=== PATIENT | female | born 1970 | race Caucasian/White ===

== ENCOUNTER 2019-07-13 14:38 | Outpatient (CLI) | payer OTHER, SELFPAY ==
--- NOTE | 2019-07-13 14:42 | XR_ITS ---
WS: [id number] LATERAL LUMBAR SPINE: 3 view. Lateral radiographs are performed in upright neutral, flexion and extension to the patient's toleranc e. HISTORY: Low back pain COMPARISON: None available. Normal lumbar alignment. No fracture. No instability with flexion or extension. Scattered calcificati on in the distal aorta. XR/XR lumbar spine f/e only [id number] IMPRESSION: No lumbar spine instability.
== END 2019-07-13 14:39 | disposition home or self-care (01) ==
LOC: RADWPI 14:41
PROVIDERS: Family Provider Nurse Practitioner Family; PCP Family Medicine; Referring Provider Family Medicine; Visit Provider Licensed Practical Nurse
DX: M54.5 Low back pain (principal)
CPT/HCPCS: 72120

== ENCOUNTER 2019-07-29 12:29 | Outpatient (CLI) | payer OTHER, SELFPAY ==
[2019-07-29] MEDS: iohexol 300 mg/mL 100 mL Btl IV (13:04)
--- NOTE | 2019-07-29 15:30 | CT_ITS ---
WS: [id number] CT CERVICAL SPINE with contrast. HISTORY: Cervical stenosis TECHNIQUE: Contiguous 2.5 mm axial imaging performed through the entire cervical spine with contrast. Sagittal and coronal reformats also performed. All CT scans at [facility] use at least o ne of these dose optimization techniques: automated exposure control; mA and/or kV adjustment per pat ient size (includes targeted exams where dose is matched to clinical indication); or iterative recons truction. DLP: 1681.95 mGycm Omnipaque 300, 95 mL IV. COMPARISON: 05/14/2019 Straightening of the normal cervical lordosis. Small osteophytes extend posteriorly from C4, C5 and C6. C5 retrolisthesis by 2 mm. No fractures. Treating Machine Operator niocervical junction is intact. No enhancing masses or vascular malformations are identified. C2-C3: Normal. C3-C4: Shallow central disc protrusion. C4-C5: Mild osteophytic ridging. Mild RIGHT foraminal narrowing. C5-C6: Mild osteophytic ridging and central disc protrusion. Moderate narrowing of the central canal and bilateral foraminal stenosis. C6-C7: Small central disc protrusion and osteophytic ridging. Mild central and bilateral foraminal st enosis. C7-T1: Normal. Paraseptal emphysema at the lung apices. CT/CT cervical spine w con [id number] IMPRESSION: 1. Straightening of the normal cervical lordosis. 2. Moderate degenerative disc disease at C5-6. 3. Moderate central and bilateral foraminal stenosis at C5-6. 4. Mild central and bilateral foraminal stenosis at C6-7. 5. C5 retrolisthesis by 2 mm. 6. No enhancing masses.
--- NOTE | 2019-07-29 16:00 | XR_ITS ---
WS: [id number] LATERAL CERVICAL SPINE: 3 view. Lateral radiographs are performed in upright neutral, flexion and extension to the patient's toleranc e. HISTORY: Neck pain COMPARISON: None available. Mild straightening and slight reversal of the normal cervical lordosis. C5 retrolisthesis by 2 mm. No significant change with flexion or extension. Vertebral body heights and disc space heights remain n ormal. XR/XR cervical spine fl/ex [id number] IMPRESSION: 1. No significant cervical instability. 2. C5 retrolisthesis by 2 mm.
== END 2019-07-29 12:30 | disposition home or self-care (01) ==
LOC: RADWPI 12:33
PROVIDERS: Family Provider Nurse Practitioner Family; PCP Family Medicine; Visit Provider Licensed Practical Nurse
DX: M48.02 Spinal stenosis, cervical region (principal); M50.322 Other cervical disc degeneration at C5-C6 level
CPT/HCPCS: 72040; 72126; Q9967

== ENCOUNTER 2019-10-26 14:04 | Observation (INO) | payer OTHER, SELFPAY ==
[2019-10-23 11:52] VITALS: BMI 23.7
[2019-10-26] VITALS (12 sets, daily range): BP systolic 116–165; BP diastolic 78–94; PULSE 69–104; RESP 17–26; TEMP 36.2–36.6; O2SAT 94–99
--- NOTE | 2019-10-26 10:21 | P.HPUD_ITS ---
Surgery/Procedure H&P Update DATE OF PROCEDURE: October 26, 2019 DATE H&P PERFORMED: 10/19/19 H&P UPDATE INFORMATION: I have reviewed H&P completed within last 30 days and H&P is in [facility] [place] on date indicated PREOP DIAGNOSIS: Intervertebral disc disorder with myelopathy, mid cervical region PRIMARY INDICATION FOR PROCEDURE: Pain PLANNED PROCEDURE: Operation Date: 10/26/19 10:50 Proposed Procedures Anterior Cervical Discectomy/Fusion/fixation C5-C6 C6-C7 44739 M50.020(Not Applicable) - Arslan Morales MD
--- NOTE | 2019-10-26 10:23 | PM.OP2 ---
 Brief Operative Note: Date of procedure: 10/26/19 Pre-op diagnosis: Intervertebral disc disorder with myelopathy Post-op diagnosis: same (with instabiity of joint) Procedure Done: C5-C7 ACDFF Surgeon: Arslan Morales Estimated blood loss (mL): 25 Complications: None Post-op Plan: PACU, then bentley Condition: stable Disposition: PACU Coding Level of Care Code Acute Substance Abuse Technician for Gretel Borrero
[2019-10-26] MEDS: sodium chloride 0.9% 1,000 ML 30 ML IV (10:30)
--- NOTE | 2019-10-26 10:34 | ANES.PREANE2 ---
Pre-Anesthetic Assessment Pre-Anesthetic Assessment: Height/Weight: Height 1.6 m Weight 60.781 kg Temp Pulse Resp BP Pulse Ox 97.6 F 69 18 116/78 99 10/26/19 10:01 10/26/19 10:01 10/26/19 10:01 10/26/19 10:01 10/26/19 10:01 Preop Diagnosis: Intervertebral disc disorder with myelopathy, mid cervical region Proposed Procedure: Operation Date: 10/26/19 10:50 Proposed Procedures p Anterior Cervical Discecotmy&Fusion 2Lev C5-C6 C6-C7 91360 M50.020(Not Applicable) - Arslan Morales MD Familial anesthetic complications: Violent/startled upon awakening from anesthesia Baclofen TID prn -takes everyday but not three times a day. Was Beta Leonie taken within 24 hours: N/A Last intake: Intake Last Liquid Date 10/25/19 Last Liquid Time 21:00 Last Solid Date 10/25/19 Last Solid Time 21:00 Social: Social History: Tobacco Packs per day: 1 ppd Exam: Pre-Anes Outpt Exam: alert, oriented x 3, clear to auscultation bilaterally and regular rate & rhythm Airway: Cervical ROM: Other (limited due to pain) MP: 2 Dentition: Full Additional comments: upper dentures Pulmonary: Pulmonary: None reported CV/HEM: CV/HEM: None reported : : None reported Hepatic: Hepatic: None reported GI: GI: None reported Metabolic: Metabolic: None reported Musc/skel: Musc/skel: Fibromyalgia Neuropsych: Neuropsych: Neuropathy and None reported Anesthetic Plan: ASA status: 2 Anesthesia: General Risk of > 500 ml blood loss (7ml/kg in children): No Meds/Allergies Current Medications: Current Medications Generic Name Dose Route Start Last Admin Trade Name Freq PRN Reason Stop Dose Admin Sodium Chloride 1,000 mls @ 30 ml s/hr 10/26/19 10:15 10/26/19 10:30 Sodium Chloride 0.9% IV 10/27/19 10:14 30 mls/hr .Q24H ROMULO Administration PFSH Anesthesia PFSH: Medical History (Updated 10/23/19 @ 13:47 by Kimberlee Pena) Back pain of lumbosacral region with sciatica Cervical disc disorder with myelopathy of mid-cervical region Intervertebral disc disorder with radiculopathy of lumbosacral region Lumbar stenosis with neurogenic claudication Stenosis of cervical spine with myelopathy Syrinx of spinal cord Thoracic degenerative disc disease Social History Smoking and tobacco status: current some day smoker Alcohol intake: never Lives independently: Yes Household members: children Housing: House Marital status: service: No Current occupational status: retired History of recent travel: No Data Anesthesia Cardiac Studies: No Data to Display
--- NOTE | 2019-10-26 11:01 | XR_ITS ---
WS: [id number] INTRAOPERATIVE LATERAL CERVICAL SPINE HISTORY: OR PICS COMPARISON: 07/29/2019 Lateral radiograph obtained in the OR with a metallic marker indicating the anterior C6 vertebral bod y. Patient is intubated. XR/XR cervical spine 1ort [id number] IMPRESSION: Intraoperative planning marker at anterior C6 level.
[2019-10-26] MEDS: thrombin 5,000 unit SDV 5000 UNIT XX (11:23)
--- NOTE | 2019-10-26 11:38 | XR_ITS ---
WS: [id number] INTRAOPERATIVE LATERAL CERVICAL SPINE HISTORY: SURGERY COMPARISON: 10/26/2019 Lateral radiograph obtained in the OR with a metallic marker indicating the anterior disc space of C5 -6. Soft tissue spacers are now present. Patient is intubated. XR/XR cervical spine 1ort [id number] IMPRESSION: Intraoperative planning marker at anterior C5-6 disc space.
--- NOTE | 2019-10-26 13:40 | XR_ITS ---
WS: [id number] CERVICAL SPINE 2 VIEWS HISTORY: AP/LAT Post op Fusion COMPARISON: Study earlier the same day. Status post cervical fusion. Anterior cervical plate and screws placed from C5 through C7. Poorly vis ualized due to rotation of the patient and body habitus. Interbody spacers are poorly visualized. Patient has been extubated. XR/XR cervical spine 3V* [id number] IMPRESSION: Poorly visualized anterior cervical fusion from C5 through C7. No abnormality a t detected.
--- NOTE | 2019-10-26 14:00 | SUR.PHASEI ---
1349 PATIENT TO PACU AT THIS TIME FROM OR. RR EVEN AND UNLABORED. ORAL AIRWAY IN PLACE. SPO2 98% ON SIMPLE MASK AT 8L. DRESSING TO ANTERIOR NECK, CDI WITH COLLAR IN PLACE.
--- NOTE | 2019-10-26 14:01 | SUR.PHASEI ---
1356 ORAL AIRWAY REMOVED AT THIS TIME. SPO2 95% ON RA.
--- NOTE | 2019-10-26 14:22 | SUR.PHASEI ---
1412 PATIENT TO MED SURG AT THIS TIME. RR EVEN AND UNLABORED. PAIN 3/10. DRESSING TO ANTERIOR NECK, CDI WITH COLLAR IN PLACE. PATIENT AMBULATORY FROM GURNEY TO BATHROOM, WITH STEADY. THIS NURSE REMAINED WITH PATIENT UNTIL 1420.
[2019-10-26] MEDS: HYDROcodone-acetaminophen 5-325 mg Tablet PO (14:58)
[2019-10-26] MEDS: baclofen 10 mg Tablet PO (14:58)
[2019-10-26] MEDS: gabapentin 300 mg Capsule PO (14:59)
[2019-10-26] MEDS: lactated ringers 1,000 ML 90 ML IV (14:59)
--- NOTE | 2019-10-26 17:30 | P.OP_ITS ---
Operative Report Date of procedure: October 26, 2019 Pre-op Diagnosis: Intervertebral disc disorder with myelopathy, mid cervical region Post-op diagnosis: same (With instability of joint) Procedure Done: 1. C5-C6, C6-C7 anterior cervical discectomy/osteophytectomy. 2. C5-C6, C6-C7 placement of intervertebral prosthetic devices. 3. C5-C6, C6-C7 anterior cervical plate/screw fixation. 4. C5-C6, C6-C7 anterior cervical fusion utilizing augmented, morselized autograft. Implants: ACIS ProTi Spacers. DePuy Synthes Vectra plate/screws. [employer] Moldable Demineralized Fibers. Specimens removed/disposition: C5-C6, C6-C7 disc Pathology: Cervical disc fragments Surgeon: Arslan Morales Anesthesia: General Estimated blood loss (mL): 25 IV fluids (mL): 1,200 Urine output (mL): 200 Complications: None Condition: stable Disposition: PACU Brief History: The patient is a 49-year-old female with symptomatic, radiographically confirmed cervical disc/joint disease and associated neural impingement. Imaging studies demonstrated dominant abnormalities at C5-C6 and C6-C7. Conservative management did not provide adequate lasting symptom relief. After review of the diagnostic and treatment options with the risks/potential benefits/rationale for each, the patient requested to proceed with surgical intervention. Procedure: After routine preoperative evaluation and informed consent were obtained, the patient was taken to the Operating Room and placed under general endotracheal anesthesia. She was positioned supine and fit in the [facility] tongs for the application of in-line cervical traction. The anterolateral neck on the left was prepared with hair clippers. A proposed transverse skin incision was marked with a sterile skin marker, utilizing intraoperative radiography and regional anatomy for localization. The area was scrubbed with Betadine, prepped with DuraPrep, and draped with sterile towels and drapes. [place] surgical barrier was applied. The proposed incision site was infiltrated with 1% Xylocaine with Epinephrine. A skin incision was made and carried down into the subcutaneous tissues. The platysma was identified and divided in the direction of its fibers. A plane was dissected just medial to the carotid sheath and lateral to the midline esophagus and trachea. Prevertebral soft tissues were bluntly dissected free of the anterior margin of the cervical spine. Longus coli muscles were freed from their medial attachments. Deep self-retaining retractors were placed. Intraoperative radiography verified the desired surgical levels. The C5-C6 and C6-C7 interspaces were sequentially incised with a #11 blade. Discectomies were accomplished utilizing various curettes and pituitary rongeurs. Anterior marginal osteophytes were resected with the Lempert and Kerrison rongeurs. Cartilaginous end plates were stripped free with curettes. Posterior marginal osteophytes were resected with thin foot plate Kerrison rongeurs. The medial aspects of the neural foramina were enlarged in a similar manner. Posterior longitudinal ligament was divided and resected as necessary to further the decompression. Overall, encroachment and osteophyte prominence were greater at C5-C6 than C6-C7. Once the decompressions were felt to be adequate at both levels, the disc spaces were sized. A 7 mm ACIS ProTi Lordotic/Medium Spacer was chosen for C5-C6. An 8 mm ACIS ProTi Lordotic/Medium Spacer was chosen for C6-C7. The Spacers were packed with morselized autograft obtained from the osteophytectomy portions of the procedure, augmented with [employer] Moldable Demineralized Fibers. The Spacers were sequentially placed within the C5-C6 and C6-C7 interspaces while in-line cervical traction was applied via the Pena-Wells tongs. Once the Spacers were felt to be in good position, a Synthes Vectra plate of the desired size was chosen. The plate was bent to match the curvature of the patient's cervical spine utilizing the plate avelar. The plate was secured to the C5, C6 and C7 vertebral bodies with bilateral 4 mm x 14 mm self-drilling screws. Final screw tightening was performed, and the locking mechanisms within the plate were noted to engage the screws at each site. The construct was inspected and felt to be in good position and secure. The wound was copiously irrigated with sterile saline and antibiotic irrigation. Hemostasis was ensured with the bipolar electrocautery. Wound closure was performed in multiple layers with 2-0 Vicryl Plus simple interrupted closure of the platysma and deep dermis as separate layers. Final skin closure was performed with 4-0 Vicryl Plus in a running subcuticular pattern. Steri- Strips were applied, and a sterile dressing was placed. The patient was released from the Pena-Wells tongs and fit in a [place] collar. She was transferred onto the Recovery Room cart in the supine position. She was extubated without incident. The patient tolerated the procedure well. All sponge, needle, and instrument counts were correct at the completion of the procedure.
--- NOTE | 2019-10-26 18:17 | PM.DCS ---
Discharge Providers Date of Admission: 10/26/19 14:04 Date of Discharge: October 26, 2019 Attending Provider at Admission: Arslan Wilson MD Attending Provider at Discharge: Arslan Wilson MD Primary Care Provider: Akiko Valdez MD Diagnoses at Discharge Discharge Diagnosis (1) Cervical disc disorder with myelopathy of mid-cervical region: Status: Chronic (2) Instability of joint: Status: Acute Reason for Visit Reason for Visit: Reason For Visit: Cervical disc disorder with myelopathy of mid cerv Brief History: The patient is a 49-year-old female with symptomatic, radiographically confirmed cervical disc/joint disease and associated neural impingement. Imaging studies demonstrated dominant abnormalities at C5-C6 and C6-C7. Conservative management did not provide adequate lasting symptom relief. After review of the diagnostic and treatment options with the risks/potential benefits/rationale for each, the patient requested to proceed with surgical intervention. Hospital Course Hospital Course: The patient underwent C5-C6, C6-C7 ACDFF on 10/26/2019. She tolerated the procedure well. She completed preoperative and postoperative intravenous antibiotic doses, and the physical therapy postoperative spine protocol. She was ambulatory, voiding, and tolerating regular diet prior to discharge home on the evening of the date of surgery. Physical Exam Const: COMMON NORMALS: no apparent distress GENERAL APPEARANCE: cooperative and comfortable Neck/C-Spine: COMMON NORMALS: supple GENERAL: Yes trachea midline and No anterior neck swelling CERVICAL SPINE: Yes collar present Resp: COMMON NORMALS: normal respiratory effort EFFORT & INSPECTION: No tachypneic Extremity: COMMON NORMALS: no clubbing, cyanosis or edema Neuro: COMMON NORMALS: moves all extremities MOTOR EXAM: strength 5/5 throughout (Bilateral upper extremities) Psych: COMMON NORMALS: mental status grossly normal and speech normal ATTITUDE: Yes calm and Yes engaged ACTIVITY/MOTOR BEHAVIOR: Yes appropriate eye contact SPEECH: Yes normal speech ATTENTION/CONCENTRATION: Yes attention grossly intact Skin: WOUNDS: Yes surgical site (Left anterolateral neck surgical site dressing clean/dry/intact.) Urinary Catheter Management^: F: Cath Placed During This Visit: yes, but has since been removed by the nurse Urinary Catheter Date of Insertion: 10/26/19 Urinary Catheter Time of Insertion: 11:15 Date Urinary Catheter Removed: 10/26/19 Time Urinary Catheter Discontinued: 13:30 Discharge Data Data Completed and Pending: Completed Studies During Hospitalization Category Date Time Status XR cervical spine 1 view portable [ XR cervical spine Exams 10/26/19 11:38 Completed 1Vport 17197] Rou bishnu XR cervical spine 1Vport 11912 Rout ine Exams 10/26/19 11:01 Completed XR cervical spine 3V* [id number] Routine Exams 10/26/19 13:40 Completed Pathology: Surgic al [PTH] Routine Pth 10/26/19 13:52 Completed Imaging^: Other Xray: Radiologist's impression: IMPRESSION: Poorly visualized anterior cervical fusion from C5 through C7. No abnormality at detected. Procedures Performed: C5-C6, C6-C7 anterior cervical discectomy/fusion/fixation. Intravenous antibiotics. Physical therapy. Vitals: Last Vital Signs Temp 97.5 F L 10/26/19 18:29 Pulse 87 10/26/19 18:29 Resp 18 10/26/19 18:29 BP 165/90 10/26/19 18:29 Pulse Ox 96 10/26/19 18:29 Discharge Plan Discharge Patient Disposition: Home, Self-Care Condition: Stable Prescriptions: [place] 7.5-325 mg tablet 1 tab PO Q4H PRN (Reason: pain) Qty: 30 RF: 0 Continued multivit,wcqutdt-tjz-mfpob acd 200 mcg tablet 1 mcg PO ONCE RF: 0 baclofen 10 mg tablet 10 mg PO TID Qty: 90 RF: 2 gabapentin 300 mg capsule 300 mg PO TID Qty: 90 RF: 3 Chantix Starting Month Box 0.5 mg (11)- 1 mg (42) tablets,dose pack See Rx Instructions PO PER PKG DIR Qty: 53 RF: 0 Discontinued tramadol 50 mg tablet 100 mg PO TID PRN (Reason: pain) Qty: 180 RF: 0 Discharge Orders: Discharge Order (Routine); Ordered 10/26/19 Ordered By: Arslan Wilson Referrals: Arslan Wilson MD [Physician] - 2 weeks (DR WILSON OFFICE WILL OSCAR WITH APPOINTMENT.) Discharge Diet: Advance as tolerated Discharge Activity: Limit activity as instructed and As per PT/OT instructions Patient Instructions: Hydrocodone/Acetaminophen (By mouth), Anterior Cervical Discectomy (DC) Activity Restrictions/Additional Instructions: Activity -Cervical fusion: Wear cervical collar 24 hours a day. Change as necessary for showering, shaving, or if it becomes soiled. -No lifting or reaching overhead. - No driving until office followup visit - No lifting/pushing/pulling over 10 pounds - Avoid twisting or bending - Walking is encouraged - Home exercise per physical therapist - You may engage in sexual intercourse at any time as long as it is comfortable for you - Check with your doctor before returning to work. Notify your doctor if you develop: - temperature of 101.5 degrees F. or higher - redness or swelling of the incision - Foul drainage - increasing pain - increasing numbness or tingling in the arms or legs - New or increasing problems with vision, balance, memory, speaking, nausea or vomiting Hygiene: - Showering is okay - No tub baths or soaking Other: Remove outer bandage 3 days after surgery. If you have paper strips, leave in place until they fall off on their own. If you have stitches, keep your incision dry until the stitches are removed. Your doctor's office is available to answer any questions from 7 AM to 5:00 PM, Saturday through at [phone]. After hours, go to the emergency room at [facility] or call 911 for assistance. Discharge Date/Time: 10/26/19 17:40 Discharge Attestations Time Spent in Discharge Care*: other (postop global) Quality Metrics Clinical Quality Measures During this hospital stay, did patient experience: None Coding Level of Care Code Acute Peach Grower for Gretel Fwd Exam Detailed Diagnoses Cervical disc disorder with myelopathy of mid-cervical region M50.020 Instability of joint M25.30 Comment postop global
--- NOTE | 2019-10-26 18:17 | PC.NURSE ---
Discharge note Patient was educated on discharge orders. All medications with adverse effects were educated with patient verbalizing understanding. IV was removed with catheter in tact. Patient tolerated well. Patient taken off unit for discharge by wheelchair.
== END 2019-10-26 17:40 | disposition home or self-care (01) ==
LOC: MEDSURG 14:05
PROVIDERS: Admitting Provider Specialist; PCP Family Medicine; Visit Provider Specialist
PROC: 0RB30ZZ Excision of Cervical Vertebral Disc, Open Approach (ICD-10-PCS; CPT 22551; principal; 2019-10-26 10:45)
DX: M50.022 Cervical disc disorder at C5-C6 level with myelopathy (principal); M53.2X2 Spinal instabilities, cervical region; F17.210 Nicotine dependence, cigarettes, uncomplicated
CPT/HCPCS: 22551; 22552; 22853 ×2; 12345; 51702; 72020; 72040; 88304; 96361; 96365; 97110; 97161; C1713; G0378; J0690; J1100; J2001; J2250; J2370; J2405; J2704; J3010; J3490; J7030; L0172; L0174

== ENCOUNTER 2019-11-09 12:16 | Outpatient (CLI) | payer OTHER, SELFPAY ==
--- NOTE | 2019-11-09 12:58 | XR_ITS ---
WS: [id number] CERVICAL SPINE TECHNIQUE: 3 views of the cervical spine CLINICAL INFORMATION: s/p cervical spinal fusion COMPARISON: October 26, 2019 FINDINGS: Straightening of the normal cervical lordosis. Anterior interbody cervical fusion C5-C7. Fusion hardw are appears in good position. Normal C1-C2 articulation. Moderate facet arthropathy. XR/XR cervical spine 3V* [id number] IMPRESSION: Straightening of the normal cervical lordosis with anterior cervical fusion C5- C7. Hardware appears in good position.
== END 2019-11-09 12:17 | disposition home or self-care (01) ==
LOC: RADWPI 12:19
PROVIDERS: PCP Family Medicine; Visit Provider Licensed Practical Nurse
DX: Z98.1 Arthrodesis status (principal); M43.22 Fusion of spine, cervical region; M47.812 Spondylosis without myelopathy or radiculopathy, cervical region
CPT/HCPCS: 72040

== ENCOUNTER 2020-01-06 13:04 | Outpatient (CLI) | payer OTHER, SELFPAY ==
--- NOTE | 2020-01-06 13:15 | CT_ITS ---
WS: [id number] CT CERVICAL SPINE TECHNIQUE: Noncontrast CT of the cervical spine with coronal and sagittal reformatted images. CLINICAL INFORMATION: s/p cervical spinal fusion COMPARISON: CT July 29, 2019 DLP: 1291.[address] scans at [facility] use at least one of these dose optimization techniques: automat ed exposure control; mA and/or kV adjustment per patient size (includes targeted exams where dose is matched to clinical indication); or iterative reconstruction. FINDINGS: Straightening of the normal cervical lordosis. Interval new postoperative changes anterior interbody cervical fusion C5-C7. Hardware appears in good position. No evidence of hardware loosening. Immature interbody fusion grafts. Trace anterolisthesis C4 on C5. No high-grade central canal stenosis. C2-C3: Normal. C3-C4: Shallow central disc protrusion. Spinal canal is patent. Mild facet arthropathy. Foramen are p atent. C4-C5: Disc osteophytic ridging. Moderate right foraminal narrowing. Mild facet arthropathy. C5-C6:Postoperative changes. Mild bilateral bony foraminal narrowing left greater than right. Spinal canal is patent. Moderate facet arthropathy. C6-C7: Postoperative changes are new. Mild left and no significant right foraminal narrowing. Spinal canal is patent. Mild facet arthropathy. C7-T1: Normal. Paraseptal emphysema at the lung apices. CT/CT cervical spin wo con* [id number] IMPRESSION: 1. Straightening of the normal cervical lordosis with interval new postoperati ve changes. Anterior interbody cervical fusion C5-C7. 2. Hardware appears in good position. No hardware loosening. Immature interbod y fusion grafts. 3. No high-grade central canal stenosis. 4. No other significant interval changes..
== END 2020-01-06 13:05 | disposition home or self-care (01) ==
LOC: RADWPI 13:06
PROVIDERS: Family Provider Family Medicine; PCP Family Medicine; Visit Provider Licensed Practical Nurse
DX: Z98.1 Arthrodesis status (principal); M43.22 Fusion of spine, cervical region
CPT/HCPCS: 72125

== ENCOUNTER → 2020-09-20 16:37 | Outpatient (BNVA) | payer OTHER, SELFPAY | PROVIDERS: Family Provider Family Medicine; PCP Family Medicine; Visit Provider Family Medicine | DX: Z01.419 Encounter for gynecological examination (general) (routine) without abnormal findings (principal); Z78.9 Other specified health status; F41.9 Anxiety disorder, unspecified | CPT/HCPCS: 88175 ==

== ENCOUNTER 2020-10-24 14:48 | Outpatient (CLI) | payer OTHER, SELFPAY ==
--- NOTE | 2020-10-24 15:00 | MM_ITS ---
WS: [id number] SCREENING DIGITAL MAMMOGRAM WITH CAD HISTORY: screening mammogram COMPARISON: None available. Bilateral CC and MLO views submitted. Computer aided detection analyzed. Breast composition: There are scattered areas of fibroglandular density. No suspicious masses, microc alcifications or architectural distortion. MM/[place] [id number] IMPRESSION: BI-RADS: 1-Negative FOLLOW UP: 1 Year Follow-up
== END 2020-10-24 14:49 | disposition home or self-care (01) ==
LOC: RADSHAW 14:50
PROVIDERS: PCP Family Medicine; Visit Provider Family Medicine
DX: Z12.31 Encounter for screening mammogram for malignant neoplasm of breast (principal)
CPT/HCPCS: 77067

== ENCOUNTER → 2020-10-26 15:07 | Outpatient (BNVA) | payer OTHER, SELFPAY | PROVIDERS: PCP Family Medicine; Visit Provider Obstetrics & Gynecology | DX: R87.622 Low grade squamous intraepithelial lesion on cytologic smear of vagina (LGSIL) (principal) | CPT/HCPCS: 88305 ==

== ENCOUNTER → 2021-02-13 14:01 | Outpatient (BNVA) | payer OTHER, SELFPAY | PROVIDERS: PCP Family Medicine; Visit Provider Obstetrics & Gynecology | DX: Z12.72 Encounter for screening for malignant neoplasm of vagina (principal) | CPT/HCPCS: 88175 ==

== ENCOUNTER → 2021-06-09 15:02 | Outpatient (BNVA) | payer OTHER, SELFPAY | PROVIDERS: PCP Family Medicine; Visit Provider Obstetrics & Gynecology | DX: N89.0 Mild vaginal dysplasia (principal); Z85.42 Personal history of malignant neoplasm of other parts of uterus; R87.622 Low grade squamous intraepithelial lesion on cytologic smear of vagina (LGSIL) | CPT/HCPCS: 87624 ==

== ENCOUNTER → 2022-04-17 15:58 | Outpatient (BNVA) | payer OTHER, SELFPAY | PROVIDERS: PCP Family Medicine; Visit Provider Nurse Practitioner Family | DX: G89.11 Acute pain due to trauma (principal) | CPT/HCPCS: 72100; 72220 ==

== ENCOUNTER 2022-10-01 14:38 | Outpatient (CLI) | payer OTHER, SELFPAY ==
--- NOTE | 2022-10-01 | XR_ITS ---
WS: [id number] XR lumbar spine f/e only 28878 REASON FOR EXAM: BACK PAIN FINDINGS: Normal lordosis. No significant vertebral body abnormality. Mild anterior vertebral body osteophytosis L3-L5. Intervertebral disc spaces are relatively well-preserved. Mild narrowing of the L5-S1 disc. No significant neutral listhesis. No significant vertebral body movement with flexion and extension. Normal facet joints. XR/XR lumbar spine f/e only [id number] IMPRESSION: Degenerative spondylosis as above.
--- NOTE | 2022-10-01 14:41 | MM_ITS ---
WS: [id number] BILATERAL 3D TOMOSYNTHESIS DIGITAL DIAGNOSTIC MAMMOGRAPHY WITH CAD CLINICAL INFORMATION: N63.10 - Unspecified lump in the right breast, unspecifie... HISTORY: Patient directed lump with pain RIGHT breast COMPARISON: October 24, 2020 TECHNIQUE: Bilateral CC, MLO, and ML views. FINDINGS: Scattered fibroglandular densities bilaterally. Palpable marker RIGHT breast. No underlying parenchym al abnormalities in this area. Ultrasound described below. LEFT breast is unremarkable and unchanged.. ULTRASOUND BREAST RIGHT TECHNIQUE: Ultrasound right breast focused area of concern. CLINICAL INFORMATION: N63.10 - Unspecified lump in the right breast, unspecifie... FINDINGS: Ultrasound RIGHT breast with attention to the area of concern 4:00 position 3 cm from the nipple. Nor mal underlying soft tissues. No suspicious cystic or solid lesions. No suspicious findings. MM/[place] [id number] IMPRESSION: BI-RADS: 2-Benign FOLLOW UP: 1 Year Follow-up Recommend return to annual screening mammography.
--- NOTE | 2022-10-01 15:00 | XR_ITS ---
WS: [id number] BILATERAL 3D TOMOSYNTHESIS DIGITAL DIAGNOSTIC MAMMOGRAPHY WITH CAD CLINICAL INFORMATION: N63.10 - Unspecified lump in the right breast, unspecifie... HISTORY: Patient directed lump with pain RIGHT breast COMPARISON: October 24, 2020 TECHNIQUE: Bilateral CC, MLO, and ML views. FINDINGS: Scattered fibroglandular densities bilaterally. Palpable marker RIGHT breast. No underlying parenchym al abnormalities in this area. Ultrasound described below. LEFT breast is unremarkable and unchanged.. ULTRASOUND BREAST RIGHT TECHNIQUE: Ultrasound right breast focused area of concern. CLINICAL INFORMATION: N63.10 - Unspecified lump in the right breast, unspecifie... FINDINGS: Ultrasound RIGHT breast with attention to the area of concern 4:00 position 3 cm from the nipple. Nor mal underlying soft tissues. No suspicious cystic or solid lesions. No suspicious findings.
== END 2022-10-01 14:39 | disposition home or self-care (01) ==
PROVIDERS: PCP Nurse Practitioner Family; Visit Provider Nurse Practitioner Family
DX: N63.41 Unspecified lump in right breast, subareolar (principal); M54.50 Low back pain, unspecified
CPT/HCPCS: 72120; 76642; 77062; G0279

== ENCOUNTER → 2022-10-12 13:38 | Outpatient (BNVA) | payer OTHER, SELFPAY | PROVIDERS: PCP Nurse Practitioner Family; Referring Provider Nurse Practitioner Family; Visit Provider Orthopaedic Surgery | DX: M48.062 Spinal stenosis, lumbar region with neurogenic claudication (principal) | CPT/HCPCS: 72020; 99204 ==

== ENCOUNTER 2022-11-01 15:53 | Outpatient (CLI) | payer OTHER, SELFPAY ==
--- NOTE | 2022-11-01 16:00 | MR_ITS ---
WS: [id number] MRI LUMBAR SPINE NONCONTRAST TECHNIQUE: Sagittal T1, T2 and STIR imaging. Axial T1 and T2 imaging. CLINICAL INFORMATION: pain COMPARISON: 2019 FINDINGS: Prior postoperative changes ACDF in the cervical spine. Tiny intermittent syrinx visualized in the ce rvical and thoracic cord on the laminating machine feeder imaging. Cerebellar tonsillar ectopia. Disc bulging worse L4-L5 with impingement on the LEFT subarticular recess and traversing LEFT L5 nerv e root. L1-L2: Mild facet arthropathy. Spinal canal and foramen are patent. L2-L3: Mild facet arthropathy. Spinal canal and foramen are patent. L3-L4: No significant disc bulging. Spinal canal and foramen are patent. L4-L5: LEFT subarticular disc protrusion. Impingement on traversing LEFT L5 nerve root in the subarti cular recess. Mild central canal stenosis. Mild LEFT and no significant RIGHT foraminal narrowing. Mo derate facet arthropathy. L5-S1: Mild annular bulging with slight impingement on the traversing S1 nerve roots bilaterally. LEF T foraminal protrusion with mild LEFT foraminal narrowing. Mild facet arthropathy. Visualized pelvic bony structures: Normal. Paravertebral soft tissues: Normal. MR/MR lumbar spine wo con* [id number] IMPRESSION: 1. LEFT subarticular disc protrusion L4-L5 with mild central canal stenosis is new from previous. Impingement traversing LEFT L5 nerve root in the subarticul ar recess. 2. Mild LEFT L4-L5 foraminal narrowing. 3. Annular bulging L5-S1 with slight impingement traversing S1 nerve roots eleazar aterally. Mild LEFT L5-S1 foraminal narrowing. 4. Mild facet arthropathy L4-L5 and L5-S1. 5. Prior ACDF cervical spine seen on the laminating machine feeder imaging with intermittent tiny syrinx visualized in the cervical and thoracic cord. This was present in 2019
== END 2022-11-01 15:54 | disposition home or self-care (01) ==
LOC: RAD 16:00
PROVIDERS: PCP Nurse Practitioner Family; Visit Provider Orthopaedic Surgery
DX: M51.26 Other intervertebral disc displacement, lumbar region (principal); M51.36 Other intervertebral disc degeneration, lumbar region; M47.816 Spondylosis without myelopathy or radiculopathy, lumbar region; Z98.1 Arthrodesis status
CPT/HCPCS: 72148

== ENCOUNTER → 2022-11-15 15:27 | Outpatient (BNVA) | payer OTHER, SELFPAY | PROVIDERS: PCP Nurse Practitioner Family; Visit Provider Orthopaedic Surgery | DX: M48.062 Spinal stenosis, lumbar region with neurogenic claudication (principal) | CPT/HCPCS: 99214 ==

== ENCOUNTER 2022-11-28 06:00 | Outpatient (RCR) | payer OTHER, SELFPAY | END 2022-11-28 23:59 | disposition home or self-care (01) | LOC: TPT 06:00 | PROVIDERS: Visit Provider Orthopaedic Surgery | DX: M54.50 Low back pain, unspecified (principal) | CPT/HCPCS: 97163 ==

== ENCOUNTER 2022-11-29 06:00 | Outpatient (RCR) | payer OTHER, SELFPAY | END 2022-12-28 23:59 | disposition home or self-care (01) | LOC: TPT 06:00 | PROVIDERS: Visit Provider Orthopaedic Surgery | DX: M54.50 Low back pain, unspecified (principal) | CPT/HCPCS: 97110 ==

== ENCOUNTER → 2022-12-20 14:02 | Outpatient (BNVA) | payer OTHER, SELFPAY | PROVIDERS: Visit Provider Orthopaedic Surgery | DX: M48.062 Spinal stenosis, lumbar region with neurogenic claudication (principal) | CPT/HCPCS: 99213 ==

== ENCOUNTER 2022-12-29 06:00 | Outpatient (RCR) | payer OTHER, SELFPAY | END 2023-01-28 23:59 | disposition home or self-care (01) | LOC: TPT 06:00 | PROVIDERS: Visit Provider Orthopaedic Surgery | DX: M54.50 Low back pain, unspecified (principal) | CPT/HCPCS: 97110 ==

== ENCOUNTER → 2023-01-30 14:35 | Outpatient (BNVA) | payer OTHER, SELFPAY | PROVIDERS: Visit Provider Physician Assistant | DX: M48.062 Spinal stenosis, lumbar region with neurogenic claudication (principal); M51.17 Intervertebral disc disorders with radiculopathy, lumbosacral region | CPT/HCPCS: 36415; 80053; 81003; 85025; 99213 ==

== ENCOUNTER 2023-02-15 06:11 | Day surgery (SDC) | payer OTHER, SELFPAY ==
[2023-02-14 13:18] VITALS: BMI 27.4
[2023-02-15] VITALS (16 sets, daily range): BP systolic 100–137; BP diastolic 53–104; PULSE 80–112; RESP 14–18; TEMP 36.1–36.8; O2SAT 91–97
--- NOTE | 2023-02-15 | XR_ITS ---
WS: [id number] Lumbar spine, C-arm fluoroscopy, 02/15/2023 Clinical Data: left sided L4-5 and risght sided L5-S1 decompression Comparison: None. Findings: Dr. Rivera performed a lumbar decompression Impression: Lumbar decompression.
[2023-02-15] MEDS: sodium chloride 0.9% 1,000 ML 30 ML IV (06:44)
--- NOTE | 2023-02-15 07:54 | P.ANESASSM_ITS ---
Pre-Anesthetic Assessment Height/Weight: Height 1.6 m Weight 70.307 kg Temp Pulse Resp BP Pulse Ox O2 Del Method 97.1 F L 83 18 128/87 97 Room Air 02/15/23 06:32 02/15/23 06:32 02/15/23 06:32 02/15/23 06:32 02/15/23 06:32 02/15/23 06:32 Preop Diagnosis: Lumbar radiculopathy Operation Date: 02/15/23 07:50 Proposed Procedures p [id number] Left side L4/5 Minimally Invasive Decompression, 10167 L5/S1 Right side Minimally invasive Decompression(Left) - Levi Rivera DO Familial anesthetic complications: none Was Beta Leonie taken within 24 hours: N/A Was Clonidine taken within 24 hours: N/A Last intake: Intake Last Liquid Date 02/14/23 Last Liquid Time 00:00 Last Solid Date 02/14/23 Last Solid Time 22:00 Social Tobacco and No alcohol Exam alert, oriented x 3 and regular rate & rhythm Airway Submandibular: within normal limits Cervical ROM: within normal limits (previous ACDF but good extension) Mallampati: Class I Dentition: false (upper) Pulmonary Chronic Obstructive Pulmonary [place] [facility] [place] Lower Back Pain and Osteoarthritis/DJD Neuropsych Anxiety and Depression Anesthetic Plan ASA status: 3 Anesthesia: General Medications/Allergies Home Medications Medication Instructions Recorded Confirmed Last Taken Type baclofen 10 mg tablet See Rx Instructions .Route 06/14/22 02/15/23 02/14/23 Rx .COMPLEX #90 tabs buspirone 7.5 mg tablet See Rx Instructions .Route 06/14/22 02/15/23 02/14/23 Rx .COMPLEX #30 tabs hydroxyzine HCl 25 mg tablet See Rx Instructions .Route 07/18/22 02/15/23 02/14/23 Rx .COMPLEX #90 tabs diclofenac sodium 50 mg 50 mg PO BID 11/15/22 02/15/23 02/14/23 History tablet,delayed release gabapentin 300 mg capsule See Rx Instructions .Route 01/02/23 02/15/23 02/14/23 Rx .COMPLEX #60 caps Allergies Allergy/AdvReac Type Severity Reaction Status Date / Time codeine Allergy Intermediate ALGY-Rash Verified 01/30/23 13:48 Current Medications Generic Name Dose Route Start Last Admin Trade Name Freq PRN Reason Stop Dose Admin Sodium Chloride 1,000 mls @ 30 mls/hr 02/15/23 06:30 02/15/23 06:44 Sodium Chloride 0.9% IV 02/16/23 06:29 30 mls/hr .Q24H ROMULO Administration PFSH Anesthesia Medical History Back pain of lumbosacral region with sciatica Cervical disc disorder with myelopathy of mid-cervical region Intervertebral disc disorder with radiculopathy of lumbosacral region Lumbar stenosis with neurogenic claudication Stenosis of cervical spine with myelopathy Syrinx of spinal cord Thoracic degenerative disc disease Uterine cancer Surgical History History of hysterectomy (~2013) Family History Mother Lung cancer Father Heart disease, Onset Age: 55 Grandfather Stroke Paternal Denies family history of Colon cancer Diabetes Ovarian cyst Clotting disorder Hyperlipidemia Chronic kidney disease (CKD) Anesthesia complication Bleeding disorder Hypertension Thyroid disease Social History Smoking and tobacco status: current every day smoker (1/2 -1 PPD) cigarettes Packs smoked per day: 1 Years cigarettes smoked: 30 Second hand smoke exposure: Yes Alcohol intake: never Substance/Drug Use: never Lives independently: Yes Household members: spouse Marital status: Current occupational status: unemployed Current gender identity: Female Special zhane needs: No Data Anesthesia Cardiac Studies: No Data to Display
--- NOTE | 2023-02-15 08:00 | W.PM.OPSUD ---
Surgery/Procedure H&P Update DATE OF PROCEDURE: February 15, 2023 DATE H&P PERFORMED: 01/30/23 H&P UPDATE INFORMATION: I have reviewed H&P completed within last 30 days, I have examined patient prior to procedure and No changes to prior documentation PREOP DIAGNOSIS: Lumbar radiculopathy PLANNED PROCEDURE: Operation Date: 02/15/23 07:50 Proposed Procedures p [id number] Left side L4/5 Minimally Invasive Decompression, 70588 L5/S1 Right side Minimally invasive Decompression(Left) - Levi Rivera DO
[2023-02-15] MEDS: ceFAZolin 2,000 MG in sodium chloride 0.9% (plus) 50 ML 100 MG IV (08:05)
[2023-02-15] MEDS: lidocaine-epi 1% 20 mL INJ INJECTION (08:33)
[2023-02-15] MEDS: HYDROmorphone 1 mg/mL INJ 1 mL 0.5 MG IVP ×6 (09:39→10:48)
--- NOTE | 2023-02-15 09:39 | PM.OP ---
Operative Report Date of procedure: February 15, 2023 Pre-op diagnosis: Preop Diagnosis Lumbar radiculopathy Post-op diagnosis: same Procedure done: 1. L4-5 laminectomy and partial facetectomy on the left 2. L5-S1 laminectomy and partial facetectomy on the right Surgeon: Levi Rivera [employer]quis[employer] Technician: none Estimated blood loss (mL): 15 Procedure: 1. L4-5 laminectomy and partial facetectomy on the left 2. L5-S1 laminectomy and partial facetectomy on the right Patient is brought to the operative suite. After undergoing anesthesia they are placed in the prone position. All areas of impingement are well padded. Patient is then prepped and draped in the normal sterile fashion. A skin incision is made over the L4/5 level. This is confirmed under c-arm guidance. A series of dilators are passed and the tubular retractor is docked on the L4 lamina. A bovie is used to clear the soft tissue off the lamina and the L 4/5 facet joint. A high speed moe is then used to perform the laminectomy and take down the medial aspect of the L 4/5 facet joint. A kerrison rongeure was then used to take down the remaining lamina and smooth the edge of the laminectomy up to the point where the ligamentum flavum attaches. Attention was then brought to the medial aspect of the facet joint. The remaining medial aspect of the superior and inferior aspect of the facet joint were taken down with the kerrison from the pedicle of L4 to L 5. The facet joint had significant hypertrophy. Attention was then brought to the Ligamentum Flavum. The ligament was taken down from the lamina of L4 to L5 and out medially to the remaining facet joint. The ligament was thick. The dura was then exposed. The dura was in good repair. The L4 nerve was then traced with a curette out the L4/5 foramen and found to be adequately decompressed. The L5 nerve was traced with a curette around the L5 pedicle. The lateral recess was opened with a kerrison helping to further decompress the L5 nerve. Wound is then irrigated copiously with saline and surgiflo is used to stop any bleeding. The tubular retractor is removed and the A skin incision is made over the L5/S1 level. This is confirmed under c-arm guidance. A series of dilators are passed and the tubular retractor is docked on the L5 lamina. A bovie is used to clear the soft tissue off the lamina and the L 5/S1 facet joint. A high speed moe is then used to perform the laminectomy and take down the medial aspect of the L 5/S1 facet joint. A kerrison rongeure was then used to take down the remaining lamina and smooth the edge of the laminectomy up to the point where the ligamentum flavum attaches. Attention was then brought to the medial aspect of the facet joint. The remaining medial aspect of the superior and inferior aspect of the facet joint were taken down with the kerrison from the pedicle of L5 to S1. The facet joint had significant hypertrophy. Attention was then brought to the Ligamentum Flavum. The ligament was taken down from the lamina of L5 to S1 and out medially to the remaining facet joint. The ligament was thick. The dura was then exposed. The dura was in good repair. The L5 nerve was then traced with a curette out the L5/S1 foramen and found to be adequately decompressed. The S1 nerve was traced with a curette around the S1 pedicle. The lateral recess was opened with a kerrison helping to further decompress the S1 nerve. Wound is then irrigated copiously with saline and surgiflo is used to stop any bleeding. The tubular retractor is removed and the wound is closed with vicryl and monocryl suture. Glue is then used to protect the wound. A sterile dressing is then placed. Patient was then placed in the supine position and transferred to the PACU in stable condition.
[2023-02-15] MEDS: ketorolac 30 mg/mL INJ IVP (09:54)
[2023-02-15] MEDS: HYDROcodone-acetaminophen 5-325 mg Tablet 2 TAB PO (11:18)
--- NOTE | 2023-02-15 13:53 | ANE.PACU2 ---
Inpatient post-anesthesia follow up: Airway intact: Yes Vital signs: Temperature 98.3 F Pulse Rate 98 Respiratory Rate 18 Blood Pressure 112/75 Pulse Oximetry 92 Oxygen Delivery Me thod Room Air Oxygen Flow Rate Fraction of Inspir ed Oxygen Hydration adequate: Yes Nausea and vomiting: No Pain level: 5 Mental status: Baseline Additional Comments: Very difficult pain control, cont'd radicular sx's, surgeon visited at bedside. Redosed steroids and increased opioid dose.
== END 2023-02-15 12:05 | disposition home or self-care (01) ==
PROVIDERS: PCP Nurse Practitioner Family; Visit Provider Orthopaedic Surgery
PROC: (CPT 63005; principal; 2023-02-15 07:50)
DX: M48.062 Spinal stenosis, lumbar region with neurogenic claudication (principal); M51.17 Intervertebral disc disorders with radiculopathy, lumbosacral region; J44.9 Chronic obstructive pulmonary disease, unspecified; Z85.42 Personal history of malignant neoplasm of other parts of uterus; F17.210 Nicotine dependence, cigarettes, uncomplicated
CPT/HCPCS: 63047; 63048; 72020; 76000; J0131; J0690; J1100; J1170; J1885; J2250; J2405; J2704; J2710; J3010; J3490; J7030

== ENCOUNTER → 2023-03-07 13:24 | Outpatient (BNVA) | payer OTHER, SELFPAY | PROVIDERS: PCP Nurse Practitioner Family; Visit Provider Orthopaedic Surgery | DX: Z47.89 Encounter for other orthopedic aftercare (principal); Z98.1 Arthrodesis status | CPT/HCPCS: 99024 ==

== ENCOUNTER → 2023-06-10 14:18 | Outpatient (BNVA) | payer OTHER, SELFPAY | PROVIDERS: PCP Nurse Practitioner Family; Referring Provider Nurse Practitioner Family; Visit Provider Surgery | DX: R13.10 Dysphagia, unspecified (principal) | CPT/HCPCS: 99203 ==

== ENCOUNTER 2023-07-31 08:10 | Outpatient (CLI) | payer OTHER, SELFPAY ==
--- NOTE | 2023-07-31 08:30 | FL_ITS ---
WS: [id number] Modified barium swallow, 07/31/2023 Clinical Data: Trouble swallowing foods, chokes on foods. Comparison: None. Fluoroscopy time: 2min [id number] # of spot films: 1 Findings: The patient initiated swallowing normally except when presented with solid food. Then the patient sandrita wed piecemeal chewing of solid foods with propulsion of only small portions. There is penetration but no aspiration. The vallecula showed residue which cleared on swallowing. The barium tablet flowed no rmally from the oropharynx, and hypopharynx through the esophagus and into the stomach. Impression: 1. Piecemeal chewing of solid foods with propulsion of only small portions. 2. Minimal penetration but no aspiration. 3. Vallecular residue which cleared on swallowing.
== END 2023-07-31 08:11 | disposition home or self-care (01) ==
LOC: RAD 08:11
PROVIDERS: PCP Nurse Practitioner Family; Visit Provider Surgery
DX: R13.10 Dysphagia, unspecified (principal)
CPT/HCPCS: 74230; 92611

== ENCOUNTER → 2023-08-07 15:24 | Outpatient (BNVA) | payer OTHER, SELFPAY | PROVIDERS: PCP Nurse Practitioner Family; Visit Provider Surgery | DX: R13.10 Dysphagia, unspecified (principal) | CPT/HCPCS: 99213 ==

== ENCOUNTER → 2023-08-21 15:34 | Outpatient (BNVA) | payer OTHER, SELFPAY | PROVIDERS: PCP Nurse Practitioner Family; Visit Provider Otolaryngology | DX: Z98.890 Other specified postprocedural states (principal); R13.10 Dysphagia, unspecified; R13.12 Dysphagia, oropharyngeal phase; D49.1 Neoplasm of unspecified behavior of respiratory system | CPT/HCPCS: 31575; 99205 ==

== ENCOUNTER 2023-08-29 14:15 | Outpatient (CLI) | payer OTHER, SELFPAY ==
--- NOTE | 2023-08-29 14:30 | CT_ITS ---
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 Sag ittal and coronal reformats are also submitted. All CT scans at [facility] use at least one o f these dose optimization techniques: automated exposure control; mA and/or kV adjustment per patient size (includes targeted exams where dose is matched to clinical indication); or iterative reconstruc tion. CONTRAST: CONTRAST: Omnipaque 350; 100 mL IV. DLP: 128.05 mGy.cm COMPARISON: Prior neck CT 01/06/2020 Lobulated enhancing soft tissue mass centered at the tip of the epiglottis. Mass centered at the tip of the epiglottis measures 1.3 x 1.0 cm. There is increased enhancement and nodularity. This mass ext ends to invade the preepiglottic space greatest on the LEFT with extension along the aryepiglottic fo lds. Slightly greater involvement of the LEFT aryepiglottic fold. By imaging there is no soft tissue extension of enhancement into the vocal cords. Parapharyngeal fat is normal. [place] tonsils are normal and lingual tonsils are normal. Small cervical chain lymph nodes. These lymph nodes are less than a centimeter in diameter with celso l fatty nick. Anterior cervical fusion from C5-C7 with interbody spacers. Normal alignment. Visualized portions of the skull base demonstrate no abnormalities. Orbits and globes are within norm al limits. No soft tissue masses. Visualized paranasal sinuses and mastoid air cells are normal. Centrilobular emphysema at the lung apices. IMPRESSION: 1. Lobulated, enhancing soft tissue mass centered at the tip of the epiglottis. Mass extends into th e preepiglottic space greatest on the LEFT with extension along the aryepiglottic folds also greatest on the LEFT. Mass measures 1.3 x 1.0 cm. Suspicious for tumor such as squamous cell carcinoma. Recom mend biopsy and direct visualization. 2. No lymphadenopathy along the cervical chains appreciated. 3. No involvement of the vocal cords.
[2023-08-29] MEDS: iohexol 350 mg/mL 500 mL Btl (per mL) IV (14:55)
== END 2023-08-29 14:16 | disposition home or self-care (01) ==
LOC: RAD 14:18
PROVIDERS: PCP Nurse Practitioner Family; Visit Provider Otolaryngology
DX: J39.2 Other diseases of pharynx (principal)
CPT/HCPCS: 70491; Q9967

== ENCOUNTER 2023-09-04 11:06 | Day surgery (SDC) | payer OTHER, SELFPAY ==
[2023-09-04] VITALS (12 sets, daily range): BP systolic 102–141; BP diastolic 60–89; PULSE 75–95; RESP 16–21; TEMP 36.1–36.3; O2SAT 97–99; BMI 25.3
[2023-09-04] MEDS: sodium chloride 0.9% 1,000 ML 30 ML IV (11:33)
--- NOTE | 2023-09-04 11:39 | W.PM.OPSUD ---
Surgery/Procedure H&P Update DATE OF PROCEDURE: September 04, 2023 DATE H&P PERFORMED: 08/21/23 H&P UPDATE INFORMATION: I have reviewed H&P completed within last 30 days, I have examined patient prior to procedure and No changes to prior documentation CHANGES TO PREVIOUS DOCUMENTATION: No changes PREOP DIAGNOSIS: Supraglottic neoplasm and dysphagia PRIMARY INDICATION FOR PROCEDURE: supraglottic neoplasm with dysphagia PLANNED PROCEDURE: Operation Date: 09/04/23 12:40 Proposed Procedures p Laryngoscopy,direct w/biopsy-[id number] D49.1,R13.12(Not Applicable) - Aryan Garnica MD
--- NOTE | 2023-09-04 11:56 | ANES.PREANE2 ---
Pre-Anesthetic Assessment Height/Weight: Height 1.6 m Weight 64.864 kg Temp Pulse Resp BP Pulse Ox O2 Del Method 97.1 F L 93 19 H 118/89 99 Room Air 09/04/23 11:21 09/04/23 11:21 09/04/23 11:21 09/04/23 11:21 09/04/23 11:21 09/04/23 11:21 Preop Diagnosis: Supraglottic neoplasm and dysphagia Operation Date: 09/04/23 12:40 Proposed Procedures p Laryngoscopy,direct w/biopsy-[id number] D49.1,R13.12(Not Applicable) - Aryan Garnica MD Last intake: Intake Last Liquid Date 09/03/23 Last Liquid Time 00:00 Last Solid Date 09/03/23 Last Solid Time 21:30 Social Tobacco Exam alert, oriented x 3, clear to auscultation bilaterally and regular rate & rhythm Airway Submandibular: within normal limits Cervical ROM: within normal limits Mallampati: Class I Pulmonary None reported Anesthetic Plan ASA status: 3 Anesthesia: General Risk of > 500 ml blood loss (7ml/kg in children): No Medications/Allergies Home Medications Medication Instructions Recorded Confirmed Last Taken Type diclofenac sodium 50 mg 50 mg PO BID 11/15/22 09/03/23 02/14/23 History tablet,delayed release omeprazole 20 mg capsule,delayed 20 mg PO DAILY 06/10/23 09/03/23 09/03/23 History release tramadol 50 mg tablet 50 mg PO BID 08/21/23 09/03/23 09/03/23 History baclofen 10 mg tablet 10 mg PO PRN 09/03/23 09/03/23 09/02/23 History buspirone 7.5 mg tablet 7.5 mg PO DAILY 09/03/23 09/03/23 Unknown History gabapentin 300 mg capsule 300 mg PO BID PRN Pain 09/03/23 09/03/23 Unknown History hydroxyzine HCl 25 mg tablet 25 mg PO PRN PRN Indigestion 09/03/23 09/03/23 Unknown History Allergies Allergy/AdvReac Type Severity Reaction Status Date / Time codeine Allergy Intermediate ALGY-Rash Verified 08/21/23 15:42 Current Medications Generic Name Dose Route Start Last Admin Trade Name Freq PRN Reason Stop Dose Admin Sodium Chloride 1,000 mls @ 30 mls/hr 09/04/23 07:00 09/04/23 11:33 Sodium Chloride 0.9% IV 09/05/23 06:59 30 mls/hr .Q24H ROMULO Administration PFSH Anesthesia Medical History (Updated 08/21/23 @ 16:34 by Aryan Garnica MD) Uterine cancer Back pain of lumbosacral region with sciatica Lumbar stenosis with neurogenic claudication Syrinx of spinal cord Stenosis of cervical spine with myelopathy Thoracic degenerative disc disease Intervertebral disc disorder with radiculopathy of lumbosacral region Cervical disc disorder with myelopathy of mid-cervical region Surgical History (Updated 08/21/23 @ 16:26 by Aryan Garnica MD) Hx of colonoscopy 5 years ago History of back surgery lumbar Hx of neck surgery History of hysterectomy (~2013) Family History Mother Lung cancer Colon cancer Father Heart disease, Onset Age: 55 Grandfather Stroke Paternal Denies family history of Diabetes Ovarian cyst Clotting disorder Hyperlipidemia Chronic kidney disease (CKD) Anesthesia complication Bleeding disorder Hypertension Thyroid disease Social History Smoking and tobacco/nicotine status: current every day tobacco/nicotine user (1/2 -1 PPD) cigarettes Packs smoked per day: 1 Years cigarettes smoked: 30 Second hand smoke exposure: Yes Alcohol intake: never Substance/Drug Use: never Lives independently: Yes Household members: spouse Marital status: Current occupational status: unemployed Current gender identity: Female Special zhane needs: No Data Anesthesia Cardiac Studies: No Data to Display
[2023-09-04] MEDS: ceFAZolin 2,000 MG in sodium chloride 0.9% (plus) 50 ML 100 MG IV (12:33)
[2023-09-04] MEDS: EPINEPHrine 1 mg/mL INJ XX (12:57)
--- NOTE | 2023-09-04 13:05 | PM.OP ---
Operative Report Date of procedure: September 04, 2023 Pre-op diagnosis: Supraglottic neoplasm with dysphagia Post-op diagnosis: Same Post-op findings: Exophytic mass replacing the upper laryngeal surface of the epiglottis to its tip edge and extending down for 1.5 cm. Does not affect the false or true cords. Procedure done: Microscopic suspension laryngoscopy with multiple biopsies. Implants: No implants Specimens removed/disposition: Portions of neoplasm/mass from laryngeal surface of epiglottis. Pathology: Same Surgeon: Aryan Garnica MD Anesthesia: General Estimated blood loss: 10 mL Complications: No complications encountered Findings: Exophytic lobulated mass covering the upper aspect of the laryngeal surface of the epiglottis from the edge to edge and up to the leading tip of the epiglottis. Extended down about 1.5 cm from the tip. Brief History: 52-year-old female patient has been a heavy smoker complained of dysphagia problems. Exam revealed an exophytic growth on the laryngeal surface of the epiglottis near the tip and extended down from the tip onto the area of the petiole of the epiglottis. Patient is being brought to the operating room at this time to undergo suspension microscopic laryngoscopy and biopsy of this mass for diagnostic purposes. The procedure its risks and complications were explained in detail. These included bleeding infection scarring swelling bruising and need for additional treatment expecting that this will likely be a malignancy and therefore will need to be definitively treated with probable radiation therapy. More serious risks include anesthetic risk such as heart attack or stroke or not surviving the surgery. With these things understood informed consent was granted and witnessed. Procedure: Description of procedure: The patient was placed on the operating table in the supine position. Adequate general endotracheal tube anesthesia was obtained. The patient's table was rotated 90 degrees. A timeout was accomplished identifying the patient date of plan procedure allergies fire risk and medications given. With all in agreement the procedure continued. A tooth guard was placed over the upper gingiva. With her eyes taped shut a head drape was applied in usual fashion. Head was dropped 15 degrees to the horizontal. An operating laryngoscope was then inserted into the oropharynx and upper aspect of the hypopharynx and larynx. Then the lesion in question was identified immediately as a very exophytic lobulated mass that extended from near the absolute tip of the epiglottis edge and then from lateral to lateral to the AE fold region extending inferiorly about 1.5 cm down to the petiole region of the epiglottis laryngeal surface.. Multiple biopsies were obtained with cup forceps. After the multiple biopsies were obtained cottonoids soaked in 1-1000 epinephrine were applied to the biopsy sites. This was left in place for several minutes. The cottonoids were then removed. No active bleeding was encountered at this point. The area was suctioned clean. Remainder of hypopharynx and larynx did not reveal any lesions. The suspension was taken down and the scope removed. The tooth guard was removed from the upper gingiva. The throat was suctioned clean. No active bleeding was encountered. Patient's head drape was removed. I tape was removed. Head was returned to upright position. Throat was then irrigated with saline repeatedly with no sign of active bleeding. Suctioned clean and then patient was returned to anesthesia for wake-up and extubation. The patient tolerated the procedure well had an estimated blood loss of 10 mL and arrived in recovery in stable condition.
--- NOTE | 2023-09-04 15:08 | ANE.PACU2 ---
Inpatient post-anesthesia follow up: Vital signs: Temperature 97.0 F Pulse Rate 78 Respiratory Rate 17 Blood Pressure 129/74 Pulse Oximetry 98 Oxygen Delivery Me thod Room Air Oxygen Flow Rate 6 Fraction of Inspir ed Oxygen Hydration adequate: Yes Nausea and vomiting: No Mental status: Baseline Additional Comments: no apparent anesthetic complications noted
== END 2023-09-04 14:35 | disposition home or self-care (01) ==
PROVIDERS: PCP Nurse Practitioner Family; Visit Provider Otolaryngology
PROC: 0CJS8ZZ Inspection of Larynx, Via Natural or Artificial Opening Endoscopic (ICD-10-PCS; CPT 31535; principal; 2023-09-04 12:40)
DX: C32.1 Malignant neoplasm of supraglottis (principal); F17.210 Nicotine dependence, cigarettes, uncomplicated; R13.12 Dysphagia, oropharyngeal phase
CPT/HCPCS: 31535; 88305; 88342; J0171; J0690; J1100; J2405; J2704; J2710; J3010; J3490; J7030

== ENCOUNTER → 2023-09-11 16:26 | Outpatient (BNVA) | payer OTHER, SELFPAY | PROVIDERS: PCP Nurse Practitioner Family; Visit Provider Otolaryngology | DX: C32.1 Malignant neoplasm of supraglottis (principal) | CPT/HCPCS: 99024; 99203 ==

== ENCOUNTER 2023-09-18 13:14 | Oncology outpatient (recurring) (ONCR) | payer OTHER, SELFPAY ==
--- NOTE | 2023-09-19 08:24 | N.ONRAD NP_ITS ---
Radiation Oncology New Patient Visit Patient: Naina Vale MR#: [id number] : 1970 Age: 53 Sex: Female Dictated by: Naresh Miller M.D.Date of Service: 09/18/2023 Referring Physician(s) : Dr. Garnica Diagnosis: C32.1 - malignant neoplasm of supraglottis, Diagnosed 09/10/2023 (active). 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 Radiotherapy to date: Summary No prior radiation therapy. Chief Complaint / History of Present Illness: 53 yo who developed progressive throat pain since 05/2023 with pain extending to left ear. Treated with antibiotics with no improvement. 10 pound weight loss over last month. She has had frequent problems with possible aspiration since 05/2023 with episodes of choking on food. Smoked 1 ppd x 35 years and quit at dx. Sent to ENT, Dr. Garnica. Nasopharyngoscopy 08/21/2023 revealed exophytic irregular tiny grape-like growths on tip and laryngeal surface of epiglottis extends onto the AE fold bilaterally. Edema over cords with normal mobility. Mass measured 1.5 to [address] Neck CT Lobulated enhancing mass on tip of epiglottis. 1.3 x 1.0 cm extending into the pre epiglottic space and AE folds. Small cervical LNs. I did review these images and reviewed them with patient and spouse. Bx on 09/04/2023 invasive moderately differentiated squamous cell carcinoma p16 showed only focal non-specific staining. Current Medications: baclofen 10 mg PO PRN buspirone 7.5 mg PO DAILY diclofenac sodium 50 mg PO BID gabapentin 300 mg PO BID PRN hydroxyzine HCl 25 mg PO PRN PRN omeprazole 20 mg PO DAILY tramadol 50 mg PO BID Allergies: Codeine Medical History: No history of collagen vascular disease. No previous radiation therapy. Uterine cancer s/p hysterectomy. Back pain of lumbosacral region with sciatica Lumbar stenosis with neurogenic claudication Syrinx of spinal cord Stenosis of cervical spine with myelopathy Thoracic degenerative disc disease Intervertebral disc disorder with radiculopathy of lumbosacral region Cervical disc disorder with myelopathy of mid-cervical region Surgical History: Hx of colonoscopy 5 years ago History of back surgery lumbar Hx of neck surgery History of hysterectomy (~2013) Family History: Mother Lung cancer Colon cancer Father Heart disease, Onset Age: 55 Grandfather Stroke Paternal Denies family history of Diabetes Ovarian cyst Clotting disorder Hyperlipidemia Chronic kidney disease (CKD) Anesthesia complication Bleeding disorder Hypertension Thyroid disease Social History: Smoking and tobacco/nicotine status: current every day tobacco/nicotine user (1/2 -1 PPD) cigarettes Packs smoked per day: 1 Years cigarettes smoked: 30. Now quit at time of dx. Soicial drinker. No drug use . x 28 years. 2 children and 2 adopted children. House . retired from [employer]. 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 Second hand smoke exposure: Yes Alcohol intake: never Substance/Drug Use: never Lives independently: Yes Household members: spouse Marital status: Current occupational status: unemployed Current gender identity: Female Special zhane needs: No Current Complaints / Review of Systems: . Vital Signs: Performed on 09/18/2023 1:27 PM BMI - 24.446 kg/m2 (high), Height - 63 in, Weight - 138 lbs, Temperature - 97.4 f, Pulse - 89 /min, Respiration - 16 /min, O2 Sat - 91 % (low), Pain - 5, Fatigue - 4 and BP - 129/ 72 mm(hg). Physical Exam: Alert appropriate. Voice minimally hoarse. Oral cavity dentures in maxillary region, fair mandibular teeth with gum recession. No mucosal lesios. Neck no palpable adenopathy Lungs clear. Heart NSR no murmur. No pedal edema or finger clubbing. Performance Status: ECOG 0 Pathology: Primary, c32.1 - malignant neoplasm of supraglottis, Diagnosed 09/10/2023 (active) . Imaging: See HPI Impression: St II(T2, N0 M0) p 16 negative squamous cell carcinoma of the epiglottis. Satisfactory patient for definitive radiation if staging PET/CT confirms absence of cervical adenopathy. Need baseline PET/CT to fully assess status of cervical lymph nodes. Need dental clearance. Med onc eval if cervical adenopathy seen on PET/CT. Would also advise port placement if chemo advised. As she is robust in appearance and has quit smoking and will likely be compliant with treatment, we will omit PEG tube placement for now. We will schedule follow up here after PET/CT with anticipation of treatment simulation at the same time. Signed by: 09/19/2023 8:23:18 AM <<Signature on File>> Time spent with patient: CPT Code: CPT Code:
== END 2023-09-29 23:59 | disposition home or self-care (01) ==
LOC: ONCMED 13:15
PROVIDERS: PCP Nurse Practitioner Family; Visit Provider Radiology Radiation Oncology
DX: C32.1 Malignant neoplasm of supraglottis (principal); Z87.891 Personal history of nicotine dependence

== ENCOUNTER 2023-10-03 15:11 | Outpatient (CLI) | payer OTHER, SELFPAY ==
--- NOTE | 2023-10-03 15:21 | MM_ITS ---
WS: [id number] SCREENING DIGITAL TOMOSYNTHESIS MAMMOGRAM WITH CAD HISTORY: SCREEN COMPARISON: 10/01/2022, 10/24/2020 Bilateral CC and MLO with tomosynthesis views submitted. Synthetic mammography reviewed. Computer aid ed detection analyzed. Breast composition: There are scattered areas of fibroglandular density. No suspicious masses, microc alcifications or architectural distortion. IMPRESSION: MM/[place] [id number] BI-RADS: 1-Negative FOLLOW UP: 1 Year Follow-up
== END 2023-10-03 15:12 | disposition home or self-care (01) ==
LOC: RAD 15:12
PROVIDERS: PCP Nurse Practitioner Family; Visit Provider Nurse Practitioner Family
DX: Z12.31 Encounter for screening mammogram for malignant neoplasm of breast (principal)
CPT/HCPCS: 77063; 77067

== ENCOUNTER 2023-10-08 13:03 | Outpatient (CLI) | payer OTHER, SELFPAY ==
--- NOTE | 2023-10-08 13:30 | PETR_ITS ---
PROCEDURE INFORMATION: Exam: PET/CT Skull Base to Mid-thigh Exam date and time: 10/08/2023 2:04 PM Age: 53 years old Clinical indication: Condition or disease; Primary cancer: Malignant neoplasm of supraglottis LABS AND CLINICAL REPORTS: Glucose: 97 mg/dl Treatment strategy for malignancy (PET staging): Initial staging (PI) TECHNIQUE: Imaging protocol: Following at least four-hour fasting and following the injection of radiopharmaceutical, low dose CT images were obtained. Then, PET images were obtained. Attenuation corrected images were constructed using the CT scan. Fused images of PET and CT were reviewed. The standardized uptake values (SUV) reported below are maximum values within a region of interest, expressed in gm/ml. Exam includes orbital meatal line to mid-thigh. Radiopharmaceutical: 12.71 mCi F-18 FDG (Fluorodeoxyglucose), IV. Time of imaging post radiopharmaceutical administration: 1 hour Injection site: Right hand COMPARISON: CT neck 08/29/2023 FINDINGS: Brain: Visualized brain has normal physiologic uptake. Oral cavity: Uptake in the right and left lateral aspect of the tongue appears physiologic or inflammatory, without evidence of a discrete lesion on the CT images. This is greatest on the right, SUV max 5.6 on series 3, image 22. Pharynx: No abnormal uptake. Larynx: Uptake within the epiglottis in the region of previously noted mass is present, SUV max 5.4. There is physiologic appearing uptake in the region of the vocal cords. Lungs, pleura and trachea: No abnormal uptake. Mild biapical pleural scarring is noted. Mild biapical bullous changes versus paraseptal emphysematous changes are noted. Heart: Normal physiologic uptake. Mediastinal space: No abnormal uptake. Esophagus: Mild uptake within a left periesophageal lymph node measuring 0.9 x 0.7 cm on series 3, image 75 is noted, SUV max 2.6. Mild uptake within clustered mildly prominent more inferiorly located periesophageal lymph nodes are noted on the right on series 3, image 85, SUV max 2.7. These lymph nodes do not appear pathologically enlarged. Liver: No abnormal uptake. Diffuse hypodensity of the liver is noted consistent with benign steatosis. Gallbladder and bile ducts: No abnormal uptake. Pancreas: No abnormal uptake. Spleen: No abnormal uptake. Adrenal glands: No abnormal uptake. Kidneys and ureters: Normal physiologic uptake. Stomach and bowel: Uptake in the region of the rectum is likely physiologic or inflammatory, SUV max 6.0. Vasculature: No abnormal uptake. There are diffuse atherosclerotic changes. Lymph nodes: A radiotracer avid level 2 lymph node on the left measures 1.1 x 0.8 cm on series 3, image 27, SUV max 3.1. Bones/joints: No abnormal uptake in the visualized axial and appendicular skeleton. Anterior metallic fusion from C5 through C7 is noted. Soft tissues: There is benign-appearing, likely physiologic uptake in the anterior right masseter muscle without evidence of a discrete lesion on the CT images, SUV max 4.1. METRICS: Mediastinal blood pool: SUV max 2.0 PET/PET [facility] INITIAL [id number] IMPRESSION: 1. Elevated uptake in the region of the epiglottis is noted in the region of the previously identified mass compatible with malignancy. 2. Probable physiologic or inflammatory uptake within the tongue, without a definitive correlating mass on the CT images. 3. Mildly radiotracer avid small lymph nodes in the left neck and periesophageal region are noted. Although metastatic malignancy cannot be excluded, infectious or inflammatory changes may alternatively account for this uptake. 4. Additional nonurgent findings as detailed above.
== END 2023-10-08 13:04 | disposition home or self-care (01) ==
LOC: RAD 13:05
PROVIDERS: PCP Nurse Practitioner Family; Visit Provider Radiology Radiation Oncology
DX: C32.1 Malignant neoplasm of supraglottis (principal); D49.1 Neoplasm of unspecified behavior of respiratory system
CPT/HCPCS: 78815; A9552

== ENCOUNTER 2023-10-23 14:06 | Oncology outpatient (recurring) (ONCR) | payer OTHER, SELFPAY ==
[2023-10-23 15:23] LABS: Basophils # 0.1 10^3/uL (0.0-0.1); Eosinophils # 0.5 10^3/uL (0.0-0.8); Eosinophils % 4.6 %; Hematocrit 43.6 % (36-47); Lymphocytes # 4.1 10^3/uL (0.8-4.8); Mean Corpuscular HGB Conc 34.4 g/dL (30-55); Mean Corpuscular Hemoglobin 35.5 pg (27-33); Mean Corpuscular Volume 103.1 fl (85-98); Mean Platelet Volume 9.5 fL (7.4-10.4); Monocytes # 0.8 10^3/uL (0.2-0.9); Monocytes % 8.1 %; Neutrophils # 4.67 10^3/uL (1.8-7.7); Neutrophils % 45.9 %; Nucleated Red Blood Cells % 0 %; Platelet Count 320 10^3/cmm (157-399); Red Blood Count 4.23 10^6/uL (3.85-5.65); Red Cell Distribution Width 13.8 % (12.1-15.1); White Blood Count 10.16 10^3/uL (3.29-11.43)
[2023-10-23 15:55] LABS: Alanine Aminotransferase 79 U/L (0-33); Albumin Level 4.1 g/dL (3.5-5.2); Alkaline Phosphatase 188 U/L (35-105); Anion Gap 10.1 (5-19); Aspartate Amino Transferase 37 U/L (0-32); Blood Urea Nitrogen 5 mg/dL (6-20); Calcium 8.7 mg/dL (8.5-10.5); Carbon Dioxide 28 mmol/L (22-29); Chloride 103 mmol/L (98-107); Creatinine Clr Calc Pharmacy 84.3311; Globulin 2.8 g/dL (1.3-4.6); Glomerular Filtration Rate 88.2 mL/min (90-130); Glucose 76 mg/dL (65-115); Osmolality Calculated 278 mOsm/kg (285-295); Potassium 5.1 mmol/L (3.5-5.1); Sodium 136 mmol/L (136-145); Total Bilirubin 0.3 mg/dL (0.15-1.2); Total Protein 6.9 g/dL (6.6-8.7)
== END 2023-10-29 23:59 | disposition home or self-care (01) ==
PROVIDERS: PCP Nurse Practitioner Family; Visit Provider Internal Medicine Hematology & Oncology
DX: C32.1 Malignant neoplasm of supraglottis (principal); N63.10 Unspecified lump in the right breast, unspecified quadrant; Z87.891 Personal history of nicotine dependence; C55 Malignant neoplasm of uterus, part unspecified; Z91.89 Other specified personal risk factors, not elsewhere classified; Z79.899 Other long term (current) drug therapy
CPT/HCPCS: 36415; 80053; 84443; 85025; 99204

== ENCOUNTER 2023-11-20 16:30 | Oncology outpatient (recurring) (ONCR) | payer OTHER, SELFPAY ==
--- NOTE | 2023-11-06 14:00 | XR_ITS ---
WS: [id number] DEXA (DUAL ENERGY X-RAY ABSORPTIOMETRY) Bone mineral density was performed using a epacube machine. HISTORY: squamous cell carcinoma of epiglottis COMPARISON: None available. Left forearm BMD: 0.803 g/cm2. T score: -0.8 Z score: -0.7 Total hip BMD: Left: 0.724 g/cm2. T score: -2.2 Z score: -1.7 Right: 0.733 g/cm2. T score: -2.2 Z score: -1.6 10 year probability of a major osteoporotic fracture is 6.6%. XR/XR DEXA axial skeleton* [id number] IMPRESSION: OSTEOPENIA based upon the WHO classification for females.
--- NOTE | 2023-11-14 12:45 | CT_ITS ---
WS: [id number] CT HEAD TECHNIQUE: Noncontrast and contrast-enhanced CT of the head. CLINICAL INFORMATION: CA epiglottis staging COMPARISON: None. DLP: 1872.[address] scans at [facility] use at least one of these dose optimization techniques: automated e xposure control; mA and/or kV adjustment per patient size (includes targeted exams where dose is matc hed to clinical indication); or iterative reconstruction. FINDINGS: No evidence intracranial hemorrhage or mass effect. Ventricular system and basal cisterns are patent. No abnormal intracranial enhancement. No enhancing intracranial lesions. Normal gamboa-white different iation. No extra-axial fluid collections. Incidental slightly low-lying cerebellar tonsils. Paranasal sinuses and mastoid air cells are well aerated. Normal visualized soft tissues. No other acute findi ngs. CT/CT head wo/w con [id number] IMPRESSION: 1. No evidence of intracranial hemorrhage or mass effect. 2. No enhancing intracranial metastatic lesions. 3. Incidental cerebellar tonsillar ectopia. 4. Paranasal sinuses and mastoid air cells are well aerated. 5. No other acute findings. Note MRI without and with gadolinium would be more sensitive for metastatic dis ease if patient is a candidate.
[2023-11-14] MEDS: iohexol 300 mg/mL 100 mL Btl IV (12:54)
[2023-11-20 14:53] LABS: Basophils # 0.1 10^3/uL (0.0-0.1); Basophils % 1.1 %; Eosinophils # 0.3 10^3/uL (0.0-0.8); Eosinophils % 4.2 %; Hematocrit 41.4 % (36-47); Lymphocytes # 3.2 10^3/uL (0.8-4.8); Lymphocytes % 39.4 %; Mean Corpuscular HGB Conc 32.9 g/dL (30-55); Mean Corpuscular Hemoglobin 34.5 pg (27-33); Mean Corpuscular Volume 105.1 fl (85-98); Mean Platelet Volume 9.6 fL (7.4-10.4); Monocytes # 0.6 10^3/uL (0.2-0.9); Monocytes % 7.1 %; Neutrophils # 3.91 10^3/uL (1.8-7.7); Nucleated Red Blood Cells % 0 %; Platelet Count 254 10^3/cmm (157-399); Red Blood Count 3.94 10^6/uL (3.85-5.65); Red Cell Distribution Width 13.2 % (12.1-15.1); White Blood Count 8.15 10^3/uL (3.29-11.43)
[2023-11-20 15:09] LABS: Alanine Aminotransferase 17 U/L (0-33); Albumin Level 3.9 g/dL (3.5-5.2); Alkaline Phosphatase 105 U/L (35-105); Anion Gap 11.5 (5-19); Aspartate Amino Transferase 16 U/L (0-32); Blood Urea Nitrogen 6 mg/dL (6-20); Calcium 9.1 mg/dL (8.5-10.5); Carbon Dioxide 29 mmol/L (22-29); Chloride 102 mmol/L (98-107); Creatinine Clr Calc Pharmacy 84.7736; Globulin 2.7 g/dL (1.3-4.6); Glomerular Filtration Rate 88.2 mL/min (90-130); Glucose 66 mg/dL (65-115); Osmolality Calculated 282 mOsm/kg (285-295); Potassium 4.5 mmol/L (3.5-5.1); Sodium 138 mmol/L (136-145); Total Bilirubin 0.3 mg/dL (0.15-1.2); Total Protein 6.6 g/dL (6.6-8.7)
--- NOTE | 2023-11-20 16:30 | CTR_ITS ---
PROCEDURE INFORMATION: Exam: CT Neck With Contrast Exam date and time: 11/20/2023 4:57 PM Age: 53 years old Clinical indication: Condition or disease; Other: Squamous cell carcinoma; Prior surgery; Surgery date: 6+ months; Surgery type: Neck TECHNIQUE: Imaging protocol: Computed tomography of the neck with contrast. Radiation optimization: All CT scans at this facility use at least one of these dose optimization techniques: automated exposure control; mA and/or kV adjustment per patient size (includes targeted exams where dose is matched to clinical indication); or iterative reconstruction. Contrast material: OMNIPAQUE 350; Contrast volume: 100 ml; Contrast route: INTRAVENOUS (IV); COMPARISON: PT PET [facility] INITIAL [id number] 10/08/2023 2:04 PM RADIATION DOSE METRICS: Total DLP (mGy-cm): 118.23 FINDINGS: Limitations: There is some associated streak artifact from anterior fusion hardware C5 through C7. Pharynx: Unremarkable. No significant tonsillar enlargement. Larynx: Lobulated enhancing heterogeneous soft tissue mass at the epiglottis region appearing more eccentrically to the right with today's exam, with involvement of the pre epiglottic space, [id number]-right, as well as involvement of the aryepiglottic folds, [id number]-wosp-right. Compared with prior exam 08/29/2023 a mild more bulky or prominent appearance of the mass in the epiglottic region is seen, appearing more eccentrically to the right with today's exam. In addition, mass involvement of the aryepiglottic folds and particularly on the left appears more bulky or prominent with today's exam. No definite heterogeneous enhancing mass of the vocal cords. Some streak artifact from anterior fusion hardware around this level results in some limited evaluation. There is some mild anterior soft tissue fullness on the left at this level, though without significant enhancement. Prevertebral and retropharyngeal spaces: Unremarkable. Salivary glands: Unremarkable. Thyroid: Thyroid gland is unremarkable. Lymph nodes: Small cervical lymph nodes, as noted with prior exam. Trachea: Visualized trachea is unremarkable. Lungs: Visualized lung apices demonstrate emphysematous change. Bones/joints: Anterior cervical fusion hardware C5 through C7. No acute findings.. Soft tissues: Otherwise unremarkable. CT/CT neck w con* [id number] IMPRESSION: 1. Lobulated enhancing heterogeneous soft tissue mass of the epiglottis (appearing more eccentrically to the right with today's exam, extending into the pre epiglottic space and aryepiglottic folds, [id number]-[id number]-yvag-right, with a mild more bulky or prominent appearance of heterogeneous enhancing mass in relation to prior exam. 2. Anterior fusion hardware C5 through C7 with some associated adjacent streak artifact limiting the more posterior soft tissues in this region, including posteriorly at the vocal cord level. No definite heterogeneous enhancing mass of the vocal cords is seen. 3. Small cervical lymph nodes without significant lymphadenopathy, as noted with prior exam.
[2023-11-20] MEDS: iohexol 350 mg/mL 500 mL Btl (per mL) IV (17:37)
== END 2023-11-29 23:59 | disposition home or self-care (01) ==
LOC: RAD 11-21 → ONCMED 11-27 18:42
PROVIDERS: PCP Nurse Practitioner Family; Visit Provider Internal Medicine Hematology & Oncology
DX: Z53.9 Procedure and treatment not carried out, unspecified reason (principal); C32.1 Malignant neoplasm of supraglottis; Z87.891 Personal history of nicotine dependence; Z85.42 Personal history of malignant neoplasm of other parts of uterus
CPT/HCPCS: 31575; 36415; 70470; 70491; 77080; 80053; 85025; 99213; 99215; Q9967

== ENCOUNTER 2023-12-27 10:52 | Oncology outpatient (recurring) (ONCR) | payer OTHER, SELFPAY ==
--- NOTE | 2023-12-16 15:13 | ONCRAD EPV_ITS ---
Radiation Oncology Established Patient Visit Patient: Kavin Chew [id number] : 1970> Age: 53> Sex: Female> Dictated by: Dr. Kristina Raines Date of Service: 12/16/2023 Referring Physician(s) : Ok Bryson M.D. Diagnosis: C32.1 - Malignant neoplasm of supraglottis, Diagnosed 09/10/2023 (Active) Radiotherapy to Date: Current History: Patient comes in today as she is having increasing difficulty getting appointments to have her teeth taken care of prior to starting treatment. She is visited 2 separate clinics and now it has been 2 months since she had her PET scan. I asked her to come in today so that we could talk about the various options and issues which may arise in problems that may occur down the line. She continues to have nausea on occasion with her pain medicine. She is ready for refill on her hydrocodone and will be taking over that from her primary care. She also has a sore throat which is gotten increasingly severe. She has not noticed any new lumps or bumps in her neck. The oral surgeon has told her that all of her lower teeth need to be pulled and the bone needs to be ground down prior to dentures being placed. This would take at least another month to 2 months during which time she will not have had any treatment. Current Medications: Allergies: Current Complaints / Review of Systems: . Vital Signs: Performed on 12/16/2023 1:57 PM BMI - 24.446 kg/m2 (high), Height - 63 in, Weight - 138 lbs, Temperature - 96.2 f, Pulse - 80 /min, Respiration - 18 /min, O2 Sat - 96 %, Pain - 5, Fatigue - 0 and BP - 118/ 74 mm(hg). Physical Exam: General: Alert and oriented x 3. No acute distress. HEENT: Normocephalic, atraumatic. Extraocular Movements Intact: Pupils Equal, Round, Reactive to Light Sclerae anicteric. Oral cavity is clear without lesions, masses or ulcers. NECK: Supple without supraclavicular or jugular lymphadenopathy. LUNGS: Respiratory rate is regular nonlabored. HEART: Regular rate and rhythm. Performance Status: 90 Lab: None pending. Pathology: Primary, c32.1 - malignant neoplasm of supraglottis, Diagnosed 09/10/2023 (active) . Imaging: See HPI Impression: Squamous cell carcinoma supraglottic larynx Plan: We discussed the length of time needed to undergo additional oral surgery and the healing subsequently. She is very anxious that her cancer is continued to grow. I was happy that she had no adenopathy palpable in her neck. I feel like her cancer is still luckily localized to the supraglottic larynx area. She has noticed no changes in her voice quality or in her swallowing. We talked about how we can try and do the planning in such a way that we would limit the amount of radiation to the mandible so that future surgery can be performed as needed for her teeth. I did remind her that she may end up having hyperbaric oxygen before her teeth are pulled in order to help with healing. At this point she was in agreement with this. She is concerned about delaying treatment any further as [place]. We discussed the simulation process. We reviewed the daily treatment regiment. We discussed the risks and side effects both acute and long-term. She understands that treatment will be very difficult. Her is quite supportive and has been doing research in terms of vitamins and supplements. At this point I will send electronically Zofran viscous lidocaine and hydrocodone to our in-house pharmacy. We also talked about saline rinses or baking soda rinses for her oral cavity and honey for her throat. Signed by: 12/16/2023 3:11:50 PM <<Signature on File>> Time spent with patient:35 CPT Code: CPT Code:
[2023-12-19 14:35] LABS: Basophils # 0.1 10^3/uL (0.0-0.1); Basophils % 0.8 %; Eosinophils # 0.4 10^3/uL (0.0-0.8); Eosinophils % 3.8 %; Hematocrit 39.7 % (36-47); Lymphocytes # 3.2 10^3/uL (0.8-4.8); Lymphocytes % 35.3 %; Mean Corpuscular HGB Conc 34.5 g/dL (30-55); Mean Corpuscular Hemoglobin 34.1 pg (27-33); Mean Corpuscular Volume 98.8 fl (85-98); Mean Platelet Volume 9.7 fL (7.4-10.4); Monocytes # 0.6 10^3/uL (0.2-0.9); Neutrophils # 4.92 10^3/uL (1.8-7.7); Neutrophils % 53.9 %; Nucleated Red Blood Cells % 0 %; Platelet Count 318 10^3/cmm (157-399); Red Blood Count 4.02 10^6/uL (3.85-5.65); Red Cell Distribution Width 12.4 % (12.1-15.1); White Blood Count 9.13 10^3/uL (3.29-11.43)
[2023-12-19 14:54] LABS: Alanine Aminotransferase 13 U/L (0-33); Albumin Level 4.1 g/dL (3.5-5.2); Alkaline Phosphatase 94 U/L (35-105); Anion Gap 12.5 (5-19); Aspartate Amino Transferase 14 U/L (0-32); Blood Urea Nitrogen 7 mg/dL (6-20); Calcium 9.2 mg/dL (8.5-10.5); Carbon Dioxide 26 mmol/L (22-29); Chloride 102 mmol/L (98-107); Glomerular Filtration Rate 88.2 mL/min (90-130); Glucose 96 mg/dL (65-115); Osmolality Calculated 280 mOsm/kg (285-295); Potassium 4.5 mmol/L (3.5-5.1); Sodium 136 mmol/L (136-145); Total Bilirubin 0.3 mg/dL (0.15-1.2); Total Protein 7.1 g/dL (6.6-8.7)
[2023-12-19 15:10] LABS: Vitamin B12 267 pg/mL (232-1245)
[2023-12-19 15:17] LABS: Folate Level 4.6 ng/mL (4.8-37.3)
[2023-12-19 22:17] LABS: Hepatitis A Antibody IgM Non-Reactive (Nonreactive); Hepatitis B Core AB, Total Non-Reactive (Nonreactive); Hepatitis B Surface AB < 3.5 (11.5-1000); Hepatitis B Surface Antigen Non-Reactive (Nonreactive); Hepatitis C Virus Antibody Non-Reactive (Nonreactive)
[2023-12-23 15:14] LABS: Methylmalonic Acid 220 nmol/L (55-335)
--- NOTE | 2023-12-24 15:33 | ONCRAD TMN_ITS ---
Radiation Oncology Weekly Treatment Management Patient: Kavin Tabor MR#: [id number] : 1970> Attending Physician: Dr. Kristina Raines Date of Service: 12/24/2023 Fractions: 4 out of 35 Referring Physician(s) : Ok Bryson M.D. Diagnosis: C32.1 - Malignant neoplasm of supraglottis, Diagnosed 09/10/2023 (Active) Radiotherapy to date: Course: supraglottic Treatment Site: [id number], Ref. ID: [id number], Energy: 6X, Dose/Fx (cGy): 200, #Fx: 4 / 35, Dose Correction (cGy): 0, Total Dose Delivered (cGy): 800, Start Date: 12/19/2023, Elapsed Days: 5 Reason for visit: The patient is being seen today as part of their regularly scheduled weekly on treatment visits to assess for acute toxicities from radiotherapy. Review of Systems: Patient has had a mild headache. She is also been more fatigued. She has been dealing with constipation from the pain medicine. Vital Signs: Performed on 12/24/2023 2:58 PM BMI - 24.127 kg/m2 (high), Height - 63 in, Weight - 136.2 lbs, Temperature - 96.6 f, Pulse - 76 /min, Respiration - 16 /min, O2 Sat - 98 %, Pain - 0, Fatigue - 7 and BP - 132/ 76 mm(hg). Physical Exam: No changes on exam Imaging: Radiation therapy imaging related to accurate target localization (i.e. KV, MV and CBCT) was reviewed. Appropriate changes, if any, were made to ensure treatment accuracy. Plan: Will continue with her treatments as planned Signed by: Dr. Kristina Raines 12/24/2023 3:32:48 PM
== END 2023-12-29 23:59 | disposition home or self-care (01) ==
PROVIDERS: Internal Medicine; PCP Nurse Practitioner Family; Visit Provider Radiology Radiation Oncology
DX: C32.1 Malignant neoplasm of supraglottis; Z51.0 Encounter for antineoplastic radiation therapy
CPT/HCPCS: 36415; 77300; 77301; 77334; 77336; 77338; 77386; 80053; 82607; 82746; 83921; 85025; 86705; 86706; 86709; 86803; 87340; 99024; 99215

== ENCOUNTER 2024-01-20 15:01 | Oncology outpatient (recurring) (ONCR) | payer OTHER, SELFPAY ==
--- NOTE | 2023-12-31 13:33 | ONCRAD TMN_ITS ---
Radiation Oncology Weekly Treatment Management Patient: Naina Vale MR#: [id number] : 1970 Attending Physician: Dr. Kristina Raines Date of Service: 12/31/2023 Fractions: 9 out of 35 Referring Physician(s) : Ok Bryson M.D. Diagnosis: C32.1 - Malignant neoplasm of supraglottis, Diagnosed 09/10/2023 (Active) Radiotherapy to date: Course: supraglottic, Treatment Site: [id number], Ref. ID: [id number], Energy: 6X, Dose/Fx (cGy): 200, #Fx: / 35, Dose Correction (cGy): 0, Total Dose Delivered (cGy): 1,800, Start Date: 12/19/2023, Elapsed Days: 12 Reason for visit: The patient is being seen today as part of their regularly scheduled weekly on treatment visits to assess for acute toxicities from radiotherapy. Review of Systems: Patient is in good spirits. She has a good appetite. She is gained a couple pounds. She has had no real problems. Vital Signs: Performed on 12/31/2023 1:11 PM BMI - 24.517 kg/m2 (high), Height - 63 in, Weight - 138.4 lbs, Temperature - 96.5 f, Pulse - 95 /min, Respiration - 16 /min, O2 Sat - 97 %, Pain - 0, Fatigue - 0 and BP - 111/ 69 mm(hg). Physical Exam: No changes on exam. No skin changes noted Imaging: Radiation therapy imaging related to accurate target localization (i.e. KV, MV and CBCT) was reviewed. Appropriate changes, if any, were made to ensure treatment accuracy. Plan: Will continue with her treatments. I reminded her that within 2 to 3 weeks she may begin to have significant toxicity but I think she is emotionally prepared for this as is her . Signed by: Dr. Kristina Raines 12/31/2023 1:32:21 PM
--- NOTE | 2024-01-07 15:44 | ONCRAD TMN_ITS ---
Radiation Oncology Weekly Treatment Management Patient: Naina Vale MR#: [id number] : 1970 Attending Physician: Alfred Velasco M.D. Date of Service: 01/07/2024 Referring Physician(s) : Ok Bryson M.D. Diagnosis: C32.1 - Malignant neoplasm of supraglottis, Diagnosed 09/10/2023 (Active) Radiotherapy to date: Course: supraglottic, Treatment Site: [id number], Ref. ID: [id number], Energy: 6X, Dose/Fx (cGy): 200, #Fx: , Dose Correction (cGy): 0, Total Dose Delivered (cGy): 2,400, Start Date: 12/19/2023, Elapsed Days: 19 Reason for visit: The patient is being seen today as part of their regularly scheduled weekly on treatment visits to assess for acute toxicities from radiotherapy. Review of Systems: Pleasant 53-year-old female being treated for SCC is epiglottis. She states her only problems are fatigue and constipation. Constipation is resolving with the use of MiraLAX. Her pain scale is 5 on a 10 point scale. She admits that she often uses 2 hydrocodone's 10/325 in the mortgage loan counselor with good results and sometimes will not need another 1 for the entire day but she never goes over 3/day at this time. We also advised that she use lidocaine with this noted pain. Weight is presently 136 and she started 138 on the date of her consult. Vital Signs: Performed on 01/07/2024 3:04 PM BMI - 24.198 kg/m2 (high), Height - 63 in, Weight - 136.6 lbs, Temperature - 97.3 f, Pulse - 92 /min, Respiration - 17 /min, O2 Sat - 96 %, Pain - 5, Fatigue - 0 and BP - 113/ 67 mm(hg). Physical Exam: AAOx3. Skin intact. No erythema. Imaging: Radiation therapy imaging related to accurate target localization (i.e. KV, MV and CBCT) was reviewed. Appropriate changes, if any, were made to ensure treatment accuracy. Plan: Continue XRT Utilize viscous lidocaine along with her pain medicine. Okay to take medication as she is noted. Patient limiting to no more than 3 hydrocodone per day. Signed by: Alfred Velasco 01/07/2024 3:42:51 PM
--- NOTE | 2024-01-14 15:31 | ONCRAD TMN_ITS ---
Radiation Oncology Weekly Treatment Management Patient: Kavin Tabor MR#: [id number] : 1970> Attending Physician: Alfred Velasco Date of Service: 01/14/2024 Referring Physician(s) : Ok Bryson M.D. 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 ID: PTV 70, Energy: 6X, Dose/Fx (cGy): 200, #Fx: 17 / 35, Dose Correction (cGy): 0, Total Dose Delivered (cGy): 3,400, Start Date: 12/19/2023, Elapsed Days: 26 Reason for visit: The patient is being seen today as part of their regularly scheduled weekly on treatment visits to assess for acute toxicities from radiotherapy. 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 She is requesting refill of her pain medicine, antinausea medicine and lidocaine. She is using approximately 4 tablets/day. We would refill her for pain medicine on a as needed basis every 6 hours, #60, no refills. Her weight is down approximately 2 pounds. Vital Signs: Performed on 01/14/2024 3:01 PM BMI - 24.233 kg/m2 (high), Height - 63 in, Weight - 136.8 lbs, Temperature - 96.7 f, Pulse - 94 /min, Respiration - 18 /min, O2 Sat - 98 %, Pain - 3, Fatigue - 5 and BP - 113/ 80 mm(hg). Physical Exam: AAOx3. Skin intact. Imaging: Radiation therapy imaging related to accurate target localization (i.e. KV, MV and CBCT) was reviewed. Appropriate changes, if any, were made to ensure treatment accuracy. Plan: Cont XRT RX hydrocodone 10/325 1 every 6 hours as needed for cancer pain, #60, no refills. Signed by: Alfred Velasco 01/14/2024 3:29:25 PM
== END 2024-01-20 23:59 | disposition home or self-care (01) ==
PROVIDERS: PCP Nurse Practitioner Family; Visit Provider Radiology Radiation Oncology
DX: C32.1 Malignant neoplasm of supraglottis; Z51.0 Encounter for antineoplastic radiation therapy
CPT/HCPCS: 77336; 77386; 99024

== ENCOUNTER 2024-01-29 14:54 | Oncology outpatient (recurring) (ONCR) | payer OTHER, SELFPAY ==
--- NOTE | 2024-01-21 15:40 | ONCRAD TMN_ITS ---
Radiation Oncology Weekly Treatment Management Patient: Naina Vale MR#: [id number] : 1970 Attending Physician: Dr. Kristina Raines Date of Service: 01/21/2024 Fractions: 22 out of 35 Referring Physician(s) : Ok Bryson M.D. 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 ID: PTV 70, Energy: 6X, Dose/Fx (cGy): 200, #Fx: , Dose Correction (cGy): 0, Total Dose Delivered (cGy): 4,400, Start Date: 12/19/2023, Elapsed Days: 33 Reason for visit: The patient is being seen today as part of their regularly scheduled weekly on treatment visits to assess for acute toxicities from radiotherapy. Review of Systems: Patient is actually gained a pound this week. Her pain is decreased. Her main thing is that she has had some increase in her anxiety and her medication and is no longer working as it had been Vital Signs: Performed on 01/21/2024 3:05 PM BMI - 24.375 kg/m2 (high), Height - 63 in, Weight - 137.6 lbs, Temperature - 97 f, Pulse - 83 /min, Respiration - 18 /min, O2 Sat - 97 %, Pain - 4, Fatigue - 6 and BP - 115/ 65 mm(hg). Physical Exam: She actually has no changes on her skin Imaging: Radiation therapy imaging related to accurate target localization (i.e. KV, MV and CBCT) was reviewed. Appropriate changes, if any, were made to ensure treatment accuracy. Plan: We talked about doing some different things in terms of relaxation and meditation as well as using some different essential oils to help with her anxiety. She was hesitant to try any additional medication for this. This has been a chronic issue for her and it would be better for her to find additional tools other than medication to use. Will otherwise continue with her treatments as planned. Signed by: Dr. Kristina Raines 01/21/2024 3:39:22 PM
--- NOTE | 2024-01-28 15:32 | ONCRAD TMN_ITS ---
Radiation Oncology Weekly Treatment Management Patient: Naina Vale MR#: [id number] : 1970 Attending Physician: Dr. Kristina Raines Date of Service: 01/28/2024 Fractions: 29 out of 35 Referring Physician(s) : Ok Bryson M.D. 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 ID: PTV 70, Energy: 6X, Dose/Fx (cGy): 200, #Fx: 27 / 35, Dose Correction (cGy): 0, Total Dose Delivered (cGy): 5,400, Start Date: 12/19/2023, Elapsed Days: 40 Reason for visit: The patient is being seen today as part of their regularly scheduled weekly on treatment visits to assess for acute toxicities from radiotherapy. Review of Systems: Patient has noticed that her skin is becoming more erythematous. Vital Signs: She is also in need of refills of her Zofran and her hydrocodonePerformed on 01/28/2024 3:16 PM BMI - 24.517 kg/m2 (high), Height - 63 in, Weight - 138.4 lbs, Temperature - 98 f, Pulse - 75 /min, Respiration - 16 /min, O2 Sat - 97 %, Pain - 2, Fatigue - 0 and BP - 95/ 62 mm(hg)(/low). Physical Exam: On exam her skin is mildly erythematous Imaging: Radiation therapy imaging related to accurate target localization (i.e. KV, MV and CBCT) was reviewed. Appropriate changes, if any, were made to ensure treatment accuracy. Plan: Will continue with her treatments as planned. I will electronically send her prescriptions to our in-house pharmacy. Signed by: Dr. Kristina Raines 01/28/2024 3:30:04 PM
== END 2024-01-29 23:59 | disposition home or self-care (01) ==
PROVIDERS: PCP Nurse Practitioner Family; Visit Provider Radiology Radiation Oncology
DX: C32.1 Malignant neoplasm of supraglottis (principal); Z51.0 Encounter for antineoplastic radiation therapy
CPT/HCPCS: 77336; 77386; 99024

== ENCOUNTER 2024-02-07 10:44 | Oncology outpatient (recurring) (ONCR) | payer OTHER, SELFPAY ==
--- NOTE | 2024-02-04 15:40 | ONCRAD TMN_ITS ---
Radiation Oncology Weekly Treatment Management Patient: Kavin Tabor MR#: [id number] : 1970> Attending Physician: Dr. Kristina Raines Date of Service: 02/04/2024 Fractions: 32 out of 35 Referring Physician(s) : Ok Bryson M.D. 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 ID: PTV 70, Energy: 6X, Dose/Fx (cGy): 200, #Fx: 31 / 35, Dose Correction (cGy): 0, Total Dose Delivered (cGy): 6,200, Start Date: 12/19/2023, Elapsed Days: 46 Reason for visit: The patient is being seen today as part of their regularly scheduled weekly on treatment visits to assess for acute toxicities from radiotherapy. Review of Systems: Patient is in good spirits. She has noticed no additional issues Vital Signs: Performed on 02/04/2024 2:27 PM BMI - 24.198 kg/m2 (high), Height - 63 in, Weight - 136.6 lbs, Temperature - 96.6 f, Pulse - 70 /min, Respiration - 18 /min, O2 Sat - 99 %, Pain - 3, Fatigue - 6 and BP - 119/ 76 mm(hg). Physical Exam: Her skin is hyperpigmented. She has 1 areas of dry desquamation on the neck on the left side. Imaging: Radiation therapy imaging related to accurate target localization (i.e. KV, MV and CBCT) was reviewed. Appropriate changes, if any, were made to ensure treatment accuracy. Plan: Will continue with her treatments as planned she will be finished on Saturday Signed by: Dr. Kristina Raines 02/04/2024 3:39:08 PM
--- NOTE | 2024-02-10 13:28 | N.ONRD TS_ITS ---
Radiation Oncology Treatment Summary Patient: Naina Vale MR#: [id number] : 1970 Age: 53 Sex: Female Dictated by: Dr. Kristina Raines Date of Service: 02/07/2024 Referring Physician(s) : Ok Bryson M.D. 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 ID: PTV 70, Energy: 6X, Dose/Fx (cGy): 200, #Fx: 35 / 35, Dose Correction (cGy): 0, Total Dose Delivered (cGy): 7,000, Start Date: 12/19/2023, End Date: 02/07/2024, Elapsed Days: 50 Clinical Summary: The patient tolerated RT well. She really did not have the usual toxicity associated with head neck treatment. She maintained her weight. She continued to eat normal foods. Her skin changed just minimally. Plan: End of treatment today. Continue on the above medication until the skin reaction resolves. Follow up in one month. Signed by: Dr. Kristina Raines>02/10/2024 1:27:35 PM <<Signature on File>>
== END 2024-02-29 23:55 | disposition home or self-care (01) ==
PROVIDERS: PCP Nurse Practitioner Family; Visit Provider Radiology Radiation Oncology
DX: C32.1 Malignant neoplasm of supraglottis (principal); Z51.0 Encounter for antineoplastic radiation therapy
CPT/HCPCS: 77336; 77386; 99024

== ENCOUNTER 2024-05-25 13:13 | Oncology outpatient (recurring) (ONCR) | payer OTHER, SELFPAY ==
--- NOTE | 2024-05-22 14:30 | PETR_ITS ---
PROCEDURE INFORMATION: Exam: PET/CT Skull Base to Mid-thigh Exam date and time: 05/22/2024 4:11 PM Age: 53 years old Clinical indication: Condition or disease; Primary cancer: Supraglottic carcinoma; Prior surgery; Surgery date: 6+ months; Surgery type: Neck; Additional info: Supraglottic carcinoma S/P treatment, assess response LABS AND CLINICAL REPORTS: Glucose: 86 mg/dl Treatment strategy for malignancy (PET staging): Restaging (PS) TECHNIQUE: Imaging protocol: Following at least four-hour fasting and following the injection of radiopharmaceutical, low dose CT images were obtained. Then, PET images were obtained. Attenuation corrected images were constructed using the CT scan. Fused images of PET and CT were reviewed. The standardized uptake values (SUV) reported below are maximum values within a region of interest, expressed in gm/ml. Exam includes orbital meatal line to mid-thigh. SUV normalization method: BodyWeight Radiopharmaceutical: 11.57 mCi F-18 FDG (Fluorodeoxyglucose), IV. Time of imaging post radiopharmaceutical administration: 47 minutes Injection site: RIGHT AC COMPARISON: PT PET skull to thigh INIT [id number] 10/08/2023, CT neck with contrast 11/20/2023 FINDINGS: Brain: Normal physiologic uptake. Pharynx: No abnormal uptake. Larynx: Bilateral symmetric intense uptake in the vocal cords is benign. No abnormal uptake in the epiglottis, preepiglottic space and the left aryepiglottic fold where the abnormal activity associated with the primary tumor was present on the prior exam on 10/08/2023. Lungs, pleura and trachea: No abnormal uptake. Mild paraseptal emphysema in the lung apices more prominent on the right side. No suspicious lung nodules or masses. No pleural effusion. Heart: Unremarkable. There is no cardiomegaly. Minimal coronary artery calcification is present. There is no pericardial effusion. Mediastinal space: No abnormal uptake. Liver: No abnormal uptake. Maximum uptake is 3.7 SUV. Gallbladder and biliary ducts: No abnormal uptake. Pancreas: No abnormal uptake. Spleen: No abnormal uptake. No splenomegaly. Adrenal glands: No abnormal uptake. No nodules. Kidneys and ureters: Normal physiologic uptake. No hydronephrosis. Stomach and bowel: No abnormal uptake. Intraperitoneal and retroperitoneal spaces: No abnormal uptake. No ascites. Bladder: Normal physiologic uptake. Reproductive: No abnormal uptake. The uterus is absent post surgically. Vasculature: No abnormal uptake. No aortic aneurysm. Lymph nodes: No FDG avid lymphadenopathy in the neck, chest, abdomen, pelvis, and extremities. Skeleton: No abnormal uptake in the visualized axial and appendicular skeleton. Stable C5-C7 fusion with anterior internal fixation. Soft tissues: Diffusely increased benign muscular uptake in the wrists, forearms, arms, upper back, the neck, left gluteal area. PET/PET skull to thigh SUBS [id number] IMPRESSION: No abnormal radiotracer uptake concerning for malignancy. In comparison with 10/08/2023 there is complete metabolic response to treatment. NI- RADS 1- no evidence of recurrence. Comments: NI- RADS 1- no evidence of recurrence. Follow routine surveillance (every 6 months) NI- RADS2- low suspicion Subscoring for the primary site only: NI- RADS 2A- superficial finding can be visualized; correlate with direct inspection NI- RADS 2B- deep finding, would not be visible on exam; PET or short interval follow up at 3 months instead. NI- RADS 3- high suspicion (needs biopsy) NI-RADS 4- definite recurrence (path proven)
--- NOTE | 2024-05-25 14:18 | ONCRAD EPV_ITS ---
Radiation Oncology Established Patient Visit Patient: Naina Vale [id number] : 1970 Age: 53 Sex: Female Dictated by: Dr. Kristina Raines Date of Service: 05/25/2024 Referring Physician(s) : Ok Bryson M.D. 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 ID: PTV 70, Energy: 6X, Dose/Fx (cGy): 200, #Fx: 35 / 35, Dose Correction (cGy): 0, Total Dose Delivered (cGy): 7,000, Start Date: 12/19/2023, End Date: 02/07/2024, Elapsed Days: 50 Current History: Patient returns today for her 12-week check. She had a PET scan on Saturday. The PET scan did not show any evidence of recurrence disease and was recommended that she have an additional scan in 6 months. Current Medications: Allergies: Current Complaints / Review of Systems: . Vital Signs: Performed on 05/25/2024 1:12 PM BMI - 24.765 kg/m2 (high), Height - 63 in, Weight - 139.8 lbs, Temperature - 96.6 f, Pulse - 84 /min, Respiration - 17 /min, O2 Sat - 97 %, Pain - 0, Fatigue - 0 and BP - 120/ 75 mm(hg). Physical Exam: General: Alert and oriented x 3. No acute distress. HEENT: Normocephalic, atraumatic. Extraocular Movements Intact: Pupils Equal, Round, Reactive to Light NEUROLOGIC: Alert and orient x 3. Gait and speech within normal limits. Performance Status: 100 Lab: None pending. Pathology: Primary, c32.1 - malignant neoplasm of supraglottis, Diagnosed 09/10/2023 (active) . 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 Her PET scan is without evidence of disease. She and her family were overjoyed with this. At this point we will get her scheduled to return in 6 months with a follow-up PET scan and she will visit with her ENT physician in the interim. Signed by: 05/25/2024 2:16:05 PM <<Signature on File>> Time spent with patient:20 CPT Code: CPT Code:
== END 2024-05-30 23:59 | disposition home or self-care (01) ==
PROVIDERS: PCP Nurse Practitioner Family; Visit Provider Radiology Radiation Oncology
DX: C32.1 Malignant neoplasm of supraglottis (principal); Z92.3 Personal history of irradiation
CPT/HCPCS: 78815; 99024; A9552

== ENCOUNTER 2024-11-27 12:25 | Oncology outpatient (recurring) (ONCR) | payer OTHER, SELFPAY ==
--- NOTE | 2024-11-27 13:00 | PETR_ITS ---
PROCEDURE INFORMATION: Exam: PET/CT Skull Base to Mid-thigh Exam date and time: 11/27/2024 1:50 PM Age: 54 years old Clinical indication: Condition or disease; Primary cancer: Supraglottis cancer; Prior surgery; Surgery date: 6+ months; Surgery type: Neck; Additional info: H n cancer S/P tx LABS AND CLINICAL REPORTS: Glucose: 112 mg/dl Treatment strategy for malignancy (PET staging): Restaging (PS) TECHNIQUE: Imaging protocol: Following at least four-hour fasting and following the injection of radiopharmaceutical, low dose CT images were obtained. Then, PET images were obtained. Attenuation corrected images were constructed using the CT scan. Fused images of PET and CT were reviewed. The standardized uptake values (SUV) reported below are maximum values within a region of interest, expressed in gm/ml. Exam includes orbital meatal line to mid-thigh. SUV normalization method: BodyWeight Radiopharmaceutical: 10.03 mCi F-18 FDG (Fluorodeoxyglucose), IV. Time of imaging post radiopharmaceutical administration: 46 minutes Injection site: right ac COMPARISON: PT PET skull to thigh SUBS [id number] 05/22/2024 4:11 PM FINDINGS: Brain: Visualized brain has normal physiologic uptake. Pharynx: No abnormal uptake. Larynx: No abnormal uptake. Lungs, pleura and trachea: No abnormal uptake. Mild upper lung predominant emphysematous change. Heart: Normal physiologic uptake. Coronary arteries: Mild coronary artery calcification. Mediastinal space: No abnormal uptake. Liver: No abnormal uptake. Gallbladder and biliary ducts: No abnormal uptake. Pancreas: No abnormal uptake. Spleen: No abnormal uptake. Adrenal glands: No abnormal uptake. Kidneys and ureters: Normal physiologic uptake. Stomach and bowel: Diffuse colonic uptake may be physiologic or inflammatory. Reproductive: The uterus is surgically absent. Vasculature: No abnormal uptake. Moderate systemic atherosclerotic calcification without aortic aneurysm. Lymph nodes: No abnormal uptake. No lymphadenopathy in the head, neck, chest, abdomen, pelvis, and extremities. Skeleton: No abnormal uptake in the visualized axial and appendicular skeleton. C5-7 ACDF. Soft tissues: No abnormal uptake in the visualized head, neck, chest, abdomen, pelvis, and extremities. Tiny fat containing umbilical hernia. METRICS: Mediastinal blood pool: SUV mean 2.1 Liver uptake: SUV mean 2.4 PET/PET skull to thigh SUBS [id number] IMPRESSION: No abnormal radiotracer uptake to suggest recurrent or metastatic disease.
== END 2024-11-28 23:59 | disposition home or self-care (01) ==
LOC: ONCMED 12:30 → RAD 12:30 → ONCMED 11-30 09:15
PROVIDERS: PCP Nurse Practitioner Family; Visit Provider Radiology Radiation Oncology
DX: C32.1 Malignant neoplasm of supraglottis (principal); J43.9 Emphysema, unspecified; I25.10 Atherosclerotic heart disease of native coronary artery without angina pectoris; I70.0 Atherosclerosis of aorta; Z98.1 Arthrodesis status
CPT/HCPCS: 78815; A9552

== ENCOUNTER 2024-12-02 12:47 | Oncology outpatient (recurring) (ONCR) | payer OTHER, SELFPAY ==
--- NOTE | 2024-12-02 13:28 | ONCRAD EPV_ITS ---
Radiation Oncology Established Patient Visit Patient: Naina Vale [id number] : 1970 Age: 54 Sex: Female Dictated by: Alfred Velasco Date of Service: 12/02/2024 Referring Physician(s) : Ok Bryson M.D. 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 ID: PTV 70, Energy: 6X, Dose/Fx (cGy): 200, #Fx: 35 / 35, Dose Correction (cGy): 0, Total Dose Delivered (cGy): 7,000, Start Date: 12/19/2023, End Date: 02/07/2024, Elapsed Days: 50 Current History: Patient here for her 10-month follow-up. Patient had recent PET/CT on 11/27/2024 which showed no evidence of recurrence or metastatic disease. Patient denies any problems at this time. Patient has not seen Dr. Rodriguez so we would recommend that we get her an appointment for that. Current Medications: losartan, hydroxyzine, tramadol, baclofen Allergies: benadryl Current Complaints / Review of Systems: . No voice complaints Vital Signs: Performed on 12/02/2024 12:53 PM BMI - 23.206 kg/m2 (high), Height - 63 in, Weight - 131 lbs, Temperature - 96.7 f, Pulse - 76 /min, Respiration - 17 /min, O2 Sat - 98 %, Pain - 0, Fatigue - 0 and BP - 108/ 74 mm(hg). Physical Exam: General: Alert and oriented x 3. No acute distress. HEENT: Normocephalic, atraumatic. Extraocular Movements Intact: Pupils Equal, Round, Reactive to Light and Accommodation: Sclerae anicteric. Oral cavity is clear without lesions, masses or ulcers. NECK: Supple without supraclavicular or jugular lymphadenopathy. LUNGS: Clear to auscultation bilaterally without rales, rhonchi or wheeze. HEART: Regular rate and rhythm, normal S1 and S2 without murmur, gallop or rub. MUSCULOSKELETAL: No tenderness or percussion pain over the axial skeleton, scapulae or pelvis. ABDOMEN: Soft, nontender, nondistended without masses or organomegaly. Bowell sounds are present. EXTREMITIES: No peripheral edema is identified. Limited motor and sensory examination are grossly intact and symmetric bilaterally. NEUROLOGIC: Cranial nerves II ???XII are grossly intact. Normal sensation, strength 5/5 in all extremities, normal gait, no ataxia. Performance Status: KPS 90 Lab: None pending. Pathology: Primary, c32.1 - malignant neoplasm of supraglottis, Diagnosed 09/10/2023 (active) . Imaging: See HPI Impression: Stable SGL SCC PLAN: We will make her an appointment with Dr. Rodriguez for CATTLE EXAMINER scope continue maintenance evaluation RTC in 3 months or sooner if need be Signed by: 12/02/2024 1:26:01 PM <<Signature on File>> Time spent with patient/: 25 minutes CPT Code: CPT Code:
== END 2024-12-28 23:59 | disposition home or self-care (01) ==
PROVIDERS: PCP Nurse Practitioner Family; Visit Provider Radiology Radiation Oncology
DX: C32.1 Malignant neoplasm of supraglottis (principal); Z92.3 Personal history of irradiation
CPT/HCPCS: 99213

== ENCOUNTER → 2025-01-19 14:21 | Outpatient (BNVA) | payer OTHER, SELFPAY | PROVIDERS: PCP Nurse Practitioner Family; Visit Provider Podiatrist Foot & Ankle Surgery | DX: M79.671 Pain in right foot (principal); M79.672 Pain in left foot; Q82.8 Other specified congenital malformations of skin; M21.611 Bunion of right foot; M21.612 Bunion of left foot; G62.9 Polyneuropathy, unspecified | CPT/HCPCS: 73630; 99204 ==